=== PATIENT | female | born 1985 | race Two or more races ===

== ENCOUNTER 2025-06-01 23:51 | Inpatient (IN) | payer MEDICAID, OTHER ==
[~2025-06-01] VITALS: Ht 165.1 cm; Wt 66.0 kg
--- NOTE | 2025-06-02 00:16 | ED.PDOC ---
SOB-HPI HPI Comments 39 year old female presents to the ED via EMS with a chief complaint of shortness of breath onset 2 hours prior to ED arrival. Patient states she was sleeping, began experiencing shortness of breath, palpitations, chest tightness called 911. For the past day, patient was experiencing nausea/vomiting. Patient had a miscarriage in January 2025, had D&C at [facility] [place], shortly after had complications, was seen at [facility] [facility], recently had follow up appointment, was cleared. Patient states last time she was experiencing similar symptoms, she was septic. Upon ED arrival, HR was 140. She also states she has been under severe stress recently, causing anxiety. Denies any PMHx. Denies diarrhea, abdominal pain, dizziness, headache, blurry vision, cough, congestion, sore throat, cold, fever, chills. No other symptoms or modifying factors present at this time. Patient reports drinking alcohol daily, she reports she recently stopped drinking. Time Seen by MD: 00:05 Reviewed notes: Medications, Allergies Information Source: Patient, Emergency Med Personnel Mode of Arrival: EMS Severity: Moderate Timing: Hours Duration: Since onset Context: While Asleep PE Risk Factors: None History of: Anxiety Prehospital treatment: None Modifying Factors: Nothing Associated Signs and Symptoms: Chest Pain, Anxiety Quality: Tightness Radiation: No Radiation Vital Signs Vital Signs Date Time Temp Pulse Resp B/P (MAP) Pulse Ox O2 Delivery O2 Flow Rate FiO2 06/02/25 07:40 145 18 97 Room Air* 0 21 06/02/25 07:40 98.3 144/105 (118) 98.3 Physical Exam PHYSICAL EXAM: General: Awake, alert and oriented. No acute distress. Skin: Skin in warm, dry and intact. Appropriate color for ethnicity. HEENT: The head is normocephalic and atraumatic. Conjunctivae are clear without exudates or hemorrhage. Sclera is non-icteric. EOM are intact. No signs of nystagmus. Eyelids are normal in appearance without swelling or lesions. Oral mucosa is pink and moist Neck: The neck is supple with normal range of motion. No JVD. Cardiac: Rapid rate, regular rhythm. No murmurs, gallops, or rubs are auscultated. Respiratory: No signs of respiratory distress. Lung sounds are clear in all lobes bilaterally without rales, rhonchi, or wheezes. Abdominal: Abdomen is soft, non-tender without distention, guarding or rigidity. Extremities: Upper extremities are atraumatic in appearance without deformity or edema. Neurological: The patient is awake, alert and oriented to person, place, and time with normal speech. Speech is clear. There is no facial asymmetry. 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 Was a procedure done?: No Differential Dx Differential Diagnosis: Anxiety, Cardiogenic Shock, CHF, COPD, Panic Attack, Pneumonia, Other (Sepsis, alcohol withdrawal, hypovolemia, anemia, other) X-Ray, Labs, Meds, VS Vital Signs Date Time Temp Pulse Resp B/P (MAP) Pulse Ox O2 Delivery O2 Flow Rate FiO2 06/02/25 07:40 145 18 97 Room Air* 0 21 06/02/25 07:40 98.3 145 18 144/105 (118) 97 98.3 06/02/25 04:00 157 20 132/89 (103) 94 06/02/25 02:53 154 22 97 Room Air* 0 21 06/02/25 02:00 150 130/87 (101) 94 06/02/25 00:16 136 06/02/25 00:15 97.9 140 20 145/96 (112) 100 97.9 06/02/25 00:00 98.9 135 145/48 (80) 93 98.9 06/01/25 23:51 136 Lab Test 06/02/25 05:23 06/02/25 03:18 06/02/25 01:18 06/02/25 00:28 Range/Units Influenza Type A Antigen Negative Negative Influenza Type B Antigen Negative Negative SARS-CoV-2 Antigen (Rapid) Negative NEGATIVE Lactic Acid Level 5.0 *H 6.0 *H 6.0 *H 0.4-2.0 mmol/L Troponin I High Sensitivity < 3 L < 3 L < 3 L </=34 ng/L Plasma/Serum Blood Alcohol 17.2 H <10 mg/dL White Blood Count 7.2 4.4-10.8 10^3/uL Red Blood Count 4.30 4.0-5.20 10^6/uL Hemoglobin 13.8 12.2-16.2 g/dL Hematocrit 40.2 36.0-46.0 % Mean Corpuscular Volume 93.4 80.0-100.0 fL Mean Corpuscular Hemoglobin 32.1 H 28.0-32.0 pg Mean Corpuscular Hemoglobin Concent 34.4 32.0-36.0 g/dL Red Cell Distribution Width 13.5 11.8-14.3 % Platelet Count 222 140-450 10^3/uL Mean Platelet Volume 7.2 6.9-10.8 fL Neutrophils (%) (Auto) 71.7 37.0-80.0 % Lymphocytes (%) (Auto) 20.7 10.0-50.0 % Monocytes (%) (Auto) 6.9 0.0-12.0 % Eosinophils (%) (Auto) 0.1 0.0-7.0 % Basophils (%) (Auto) 0.6 0.0-2.0 % Neutrophils # (Auto) 5.2 1.6-8.6 10 ^3/uL Lymphocytes # (Auto) 1.5 0.4-5.4 10 ^3/uL Monocytes # (Auto) 0.5 0-1.3 10 ^3/uL Eosinophils # (Auto) 0 0-0.8 10 ^3/uL Basophils # (Auto) 0 0-0.2 10 ^3/uL Nucleated Red Blood Cells 0.1 % D-Dimer, Quantitative 0.42 0.0-0.49 mg/L FEU Sodium Level 138 136-145 mmol/L Potassium Level 3.2 L 3.5-5.1 mmol/L Chloride Level 101 98-107 mmol/L Carbon Dioxide Level 21 20-31 mmol/L Anion Gap 16 H 5-15 Blood Urea Nitrogen 7 L 9-23 mg/dL Creatinine 0.68 0.550-1.02 mg/dL Glomerular Filtration Rate Calc 114 >90 mL/min BUN/Creatinine Ratio 10.3 10.0-20.0 Serum Glucose 99 74-106 mg/dL Calcium Level 9.0 8.7-10.4 mg/dL Magnesium Level 1.5 L 1.6-2.6 mg/dL Total Bilirubin 0.6 0.2-1.0 mg/dL Aspartate Amino Transferase (AST) 257 H 13-40 U/L Alanine Aminotransferase (ALT) 125 H 7-40 U/L Alkaline Phosphatase 145 H 46-116 U/L B-Type Natriuretic Peptide 5.82 0-100 pg/mL Total Protein 7.5 5.7-8.2 g/dL Albumin 4.4 3.2-4.8 g/dL Thyroid Stimulating Hormone (TSH) 1.07 0.55-4.78 uIU/mL Beta HCG, Quantitative 1.3 L 1.5-4.2 mIU/mL Current Medications Medications (Trade) Dose Ordered Sig/Kate Route Start Time Stop Time Status Last Admin Sodium Chloride 1,000 ml @ 130 mls/hr [id number] ONCE IV 06/02/25 00:15 06/02/25 07:56 DC 06/02/25 00:34 Sodium Chloride 1,000 ml @ 1,000 mls/hr Q1H ONCE IV 06/02/25 00:15 06/02/25 01:14 DC 06/02/25 00:31 Ondansetron HCl (Zofran) 4 mg ONCE ONCE IV 06/02/25 00:15 06/02/25 00:16 DC 06/02/25 00:31 Alprazolam (Xanax Tablet) 0.5 mg ONCE ONCE PO 06/02/25 00:30 06/02/25 00:31 DC 06/02/25 00:34 Potassium Chloride (Klor-Con Tablet) 40 meq ONCE ONCE PO 06/02/25 01:30 06/02/25 01:34 DC 06/02/25 01:43 Lorazepam (Ativan Inj) 1 mg ONCE ONCE IV 06/02/25 02:45 06/02/25 02:46 DC 06/02/25 02:56 Vancomycin HCl 200 ml @ 200 mls/hr ONCE ONCE IV 06/02/25 02:45 06/02/25 03:44 DC 06/02/25 02:55 Piperacillin Sod/ Tazobactam Sod 100 ml @ 100 mls/hr ONCE ONCE IV 06/02/25 02:45 06/02/25 03:44 DC 06/02/25 02:45 Lorazepam (Ativan Inj) 2 mg ONCE ONCE IV 06/02/25 04:30 06/02/25 04:31 DC 06/02/25 04:44 Metoprolol Tartrate (Lopressor) 5 mg ONCE ONCE IV 06/02/25 07:30 06/02/25 07:31 DC 06/02/25 07:42 Time of 1ST Reevaluation: 00:35 Reevaluation 1ST: Unchanged Patient Education/Counseling: Need For Follow Up Family Education/Counseling: No Family Present SEPSIS Sepsis Screen Physician Orders Vital Signs Q1HR (06/02/25 00:09) Saline Lock (06/02/25 00:09) Supervisor Production (06/02/25 ) Rectal/Core Temps Only (06/02/25 00:09) Notify Md If Abnormal Vs (06/02/25 00:09) Blood Culture (06/02/25 00:09) Chest Xray 1 View (06/02/25 00:09) Ct Ab Pel With Iv Con Only (06/02/25 01:26) Communication Order (06/02/25 01:38) Vital Signs Date Time Temp Pulse Resp B/P (MAP) Pulse Ox O2 Delivery O2 Flow Rate FiO2 06/02/25 07:40 145 18 97 Room Air* 0 21 06/02/25 07:40 98.3 145 18 144/105 (118) 97 98.3 06/02/25 04:00 157 20 132/89 (103) 94 06/02/25 02:53 154 22 97 Room Air* 0 21 06/02/25 02:00 150 130/87 (101) 94 06/02/25 00:16 136 06/02/25 00:15 97.9 140 20 145/96 (112) 100 97.9 06/02/25 00:00 98.9 135 145/48 (80) 93 98.9 06/01/25 23:51 136 Laboratory Tests Test 06/02/25 00:28 06/02/25 01:18 06/02/25 03:18 Lactic Acid Level 6.0 mmol/L (0.4-2.0) *H 6.0 mmol/L (0.4-2.0) *H 5.0 mmol/L (0.4-2.0) *H White Blood Count 7.2 10^3/uL (4.4-10.8) Medications Medications Dose Ordered Sig/Kate Route Start Time Stop Time Status Last Admin Dose Admin Metoprolol Tartrate 5 mg ONCE ONCE IV 06/02/25 07:30 06/02/25 07:31 DC 06/02/25 07:42 Departure 1 Departure Time of Disposition: 04:08 Impression: Primary Impression: Shortness of breath Additional Impressions: Elevated LFTs Sinus tachycardia Alcohol withdrawal Disposition: ADMITTED INPATIENT Condition: Serious e-Prescriptions No Active Prescriptions or Reported Meds Comments MDM: Patient is stabilized in the emergency department Patient admitted to hospitalist service for further treatment, evaluation and monitoring. Extensive evaluation was performed in attempt to identify or rule out: (See differential diagnosis section) The following tests were ordered, and results were reviewed by me and discussed with patient: (See diagnostic results section) The following test were independently interpreted by me: EKG I reviewed and agreed with the following test results read by other providers: Chest x-ray I reviewed the following notes from the pt's past medical encounters: N/A Additional information was gathered from interviewing the following independent historians: EMS personnel Discussion of management or test interpretation with external physician/other qualified health manager intensive care unit: N/A Addressed an acute or chronic illness that poses a threat to life or bodily function: Alcohol withdrawal Decision regarding hospitalization or escalation of hospital level of care: Risk and benefits of admission for further treatment of patient's condition was considered. Due to patient's current clinical condition, high risk of decline and poor outcome if discharged and need for further inpatient management and monitoring, patient will be admitted to the hospital. Parenteral controlled substances: IV lorazepam Diagnosis or treatment significantly limited by social determinants of health: History of alcohol abuse Critical Care Note Critical Care Time?: No Stability Stability form required: No Heart Score Heart Score: Heart Score Response (Comments) Value History N/A 0 EKG N/A 0 Age N/A 0 Risk Factors N/A 0 Troponin N/A 0 Total 0 I personally scribed for JOYCE SAGASTUME MD ([email or web address]) on 06/02/25 at 00:16. Electronically submitted by Carmen Terrazas ([email or web address]). JOYCE SAGASTUME MD Jun 02, 2025 00:16
[2025-06-02] MEDS: SODIUM CHLORIDE 0.9% 1,000 ML IV ONE ×3 (00:31→01:40)
[2025-06-02] MEDS: ONDANSETRON HCL 4 MG/2 ML VIAL IV ONE (00:31)
[2025-06-02] MEDS: ALPRAZolam 0.5 MG TAB PO ONE (00:34)
[2025-06-02 00:39] LABS: Hematocrit 40.2 % (36.0-46.0); Hemoglobin 13.8 g/dL (12.2-16.2); Mean Corpuscular Hemoglobin 32.1 pg (28.0-32.0); Mean Corpuscular Volume 93.4 fL (80.0-100.0); Nucleated Red Blood Cells % 0.1 %
[2025-06-02 00:55] LABS: Albumin 4.4 g/dL (3.2-4.8); Anion Gap 16 (5-15); BUN/Creatinine Ratio 10.3 (10.0-20.0); Bilirubin, Total 0.6 mg/dL (0.2-1.0); Calcium 9.0 mg/dL (8.7-10.4); Carbon Dioxide 21 mmol/L (20-31); Chloride 101 mmol/L (98-107); Glucose 99 mg/dL (74-106); Sodium 138 mmol/L (136-145); Total Protein 7.5 g/dL (5.7-8.2)
[2025-06-02 00:57] LABS: Alanine Aminotransferase 125 U/L (7-40); Alkaline Phosphatase 145 U/L (46-116); Blood Urea Nitrogen 7 mg/dL (9-23); Lactic Acid w/Reflex 6.0 mmol/L (0.4-2.0); Potassium 3.2 mmol/L (3.5-5.1)
[2025-06-02] MEDS: POTASSIUM CHL 20 Meq TABLET PO ONE ×2 (01:43→16:45)
[2025-06-02 02:17] LABS: Lactic Acid w/Reflex 6.0 mmol/L (0.4-2.0)
[2025-06-02] MEDS: PIPERACILLIN-TAZOB 3.375GM 100 ML IV ONE (02:45)
[2025-06-02 02:53] VITALS: PULSE 154; RESP 22; O2SAT 97
[2025-06-02] MEDS: VANCOMYCIN 1GM/200ML PM 200 ML IV ONE (02:55)
[2025-06-02] MEDS: LORazepam 2MG/ML-1ML VIAL IV ONE ×2 (02:56→04:44)
--- NOTE | 2025-06-02 03:08 | DVH ---
CHEST RADIOGRAPH Indication: Suspected Sepsis Technique: Single frontal view of the chest was obtained COMPARISON: None FINDINGS: Lines and Tubes: None Lungs: Moderate diffuse increased prominence of the pulmonary vasculature. No evidence of focal conso lidation. Pleura: No effusion. No pneumothorax. Cardiomediastinal contours: Unremarkable Bones: Unremarkable IMPRESSION: 1. No acute disease. Moderate diffuse increased prominence of the pulmonary vasculature.
[2025-06-02] MEDS: IOHEXOL 300 MG/ML 100ML BOTTLE IJ ONE (03:10)
--- NOTE | 2025-06-02 03:37 | DVH ---
Exam: CT CT AB PEL WITH IV CON ONLY History: Elevated LFTs, suspected sepsis COMPARISON: None Technique: Multidetector spiral CT of the abdomen and pelvis was performed from lung bases to pubic s ymphysis. Intravenous contrast was administered during this examination. Portal venous imaging was o btained. Axial, coronal and sagittal multiplanar reformats were performed by the technologist on a [employer] workstation. Radiation Dose : 1. Abdomen/Pelvis: CTDIvol 18.72 mGy, DLP 994.43 mGy*cm. CONTRAST: Type of contrast: Omnipaque 300 Contrast injected: 100 ml Findings: Lung Bases: Mild left posterior basilar atelectasis. No acute or significant lung base finding. Norm al heart size. No pleural or pericardial effusion. Liver: The liver is enlarged, measuring 23.5 cm. Diffuse hepatic steatosis. No focal lesions. Destini l hepatic vascular enhancement. Gallbladder and Biliary Tree: Moderate gallbladder distention and probable sludge. Spleen: Unremarkable Pancreas: The pancreas is normal in appearance without focal lesions or abnormal enhancement. Adrenal Glands: Unremarkable Kidneys: No hydronephrosis. Bladder: Unremarkable Bowel: The stomach is grossly normal in appearance. Moderate circumferential wall thickening and intr amural edema of the cecum and ascending colon which may be related to inflammatory bowel disease and/ or colitis. Small bowel and colon are otherwise normal in caliber and distribution. The appendix is n ormal. Ascites: Absent Lymphadenopathy: No mesenteric, retroperitoneal or periportal lymphadenopathy. Abdominal Wall and Mesentery: Unremarkable. Vasculature: The visualized abdominal aorta is normal in size and caliber. Abdominal and pelvic vess els demonstrate normal enhancement. Pelvic Organs: Unremarkable Musculoskeletal: No aggressive focal bony lesions, acute fractures or dislocation. IMPRESSION: 1. Moderate circumferential wall thickening and edema of the cecum and ascending colon consistent wit h changes possibly related to colitis and/or inflammatory bowel disease. 2. Hepatomegaly and hepatic steatosis. 3. Gallbladder distention and probable sludge. Radiation optimization: All CT scans at this facility use at least one of these dose optimization alex hniques: automated exposure control mA and/or kV adjustment per patient size (includes targeted exam s where dose is matched to clinical indication) or iterative reconstruction.
[2025-06-02] MEDS ORDERED: METOPROLOL TARTRATE 1MG/1ML-5ML VIAL IV ONE (04:30)
[2025-06-02] MEDS ORDERED: ACETAMINOPHEN 325 MG TAB PO ONE (06:00)
[2025-06-02 07:40] VITALS: PULSE 145; RESP 18; O2SAT 97
[2025-06-02] MEDS: METOPROLOL TARTRATE 1MG/1ML-5ML VIAL IV ONE (07:42)
[2025-06-02] MEDS ORDERED: ONDANSETRON HCL 4 MG/2 ML VIAL IV PRN (07:45)
[2025-06-02] MEDS ORDERED: HYDROcodone-ACET 5/325MG TAB PO PRN (07:45)
[2025-06-02] MEDS ORDERED: VANCOMYCIN PER PHARMACY 0 MG IV SCH (07:45)
[2025-06-02] MEDS ORDERED: NITROGLYCERIN 0.4 MG SL TAB SL PRN (07:45)
[2025-06-02] MEDS ORDERED: ACETAMINOPHEN 325 MG TAB PO PRN (07:45)
[2025-06-02] MEDS ORDERED: DOCUSATE SOD 100 MG CAP PO PRN (07:45)
[2025-06-02] MEDS ORDERED: MORPHINE SULFATE INJ 2 MG/ml SYRG IV PRN (07:45)
--- NOTE | 2025-06-02 07:57 | DVHHP2 ---
History of Present Illness Reason for Visit: Tachycardia History of Present Illness The patient is a 39-year-old female with past medical history of anxiety who presented to [facility] ED with complaint of shortness of breaths. Patient reports experiencing shortness of breaths while sleeping with associated palpitations, chest tightness, increased work of breathing, nausea, vomiting, so EMS were called. Patient had a miscarriage in January 2025, had D&C at [facility], shortly after had complications, was seen at [place] [facility], recently for a follow up appointment, and was cleared. Patient states last time she was experiencing similar symptoms, she was septic. Patient was seen and evaluated in the ED, laboratory data shows WBC 7.2, platelets 222, sodium 138, potassium 3.2, BUN 7, creatinine 0.68, glucose 99, calcium 9.0, troponin < 3, alcohol 17.2, lactic acid 5.0, AST 257, ALT 125, blood pressure 132/89, heart rate 157 trending down to 126, temperature 98.9 F, O2 saturation 97% on room air. Abdomen/pelvis CT revealing moderate circumferential wall thickening and edema of the cecum and ascending colon consistent with changes possibly related to colitis and/or inflammatory bowel disease, hepatomegaly and hepatic steatosis, gallbladder distention and probable sludge. Patient was started on IV antibiotic regimen vancomycin, please see medication orders section in the computer. On my assessment, patient denied chest pain, no headache, no dizziness, no diaphoresis, no shortness of breath, no nausea, no vomiting, fever, no chills. Patient was admitted further evaluation and medical management. Past Medical History Anxiety, EtOH abuse Past Surgical History Denies all surgeries Family History Reviewed, noncontributory to the management of this case. Past Social History The patient lives at home, denies smoking, illicit drugs use, drinks alcohol heavily. Review of Systems Constitutional: No: Fever, Chills, Sweats, Weakness, Malaise, Other Eyes: No: Pain, Vision change, Conjunctivae inflammation, Eyelid inflammation, Other, Redness ENT: No: Ear pain, Ear discharge, Nose pain, Nose discharge, Nose congestion, Mouth pain, Mouth swelling, Throat pain, Throat swelling, Other Respiratory: Shortness of breath; No: Cough, Dry, SOB with excertion, Wheezing, Hemoptysis, Pleuritic Pain, Sputum, Wheezing, Other Cardiovascular: Chest Pain; No: Palpitations, Orthopnea, Paroxysmal Noc. Dyspnea, Edema, Lt Headedness, Other Gastrointestinal: Nausea, Vomiting; No: Abdominal Pain, Diarrhea, Constipation, Melena, Hematochezia, Other Genitourinary: No Dysuria, No Frequency, No Incontinence, No Hematuria, No Retention, No Other Musculoskeletal: No: other, neck pain, shoulder pain, arm pain, back pain, hand pain, leg pain, foot pain Skin: No: Rash, Lesions, Jaundice, Bruising, Other Neurological: No: Weakness, Numbness, Incoordination, Change in speech, Confusion, Seizures, Other Allergies: Coded Allergies: NO KNOWN ALLERGIES (Unverified , 06/02/25) Exam Vital Signs Vital Signs Date Time Temp Pulse Resp B/P (MAP) Pulse Ox O2 Delivery O2 Flow Rate FiO2 06/02/25 07:42 145 144/105 06/02/25 04:00 20 94 06/02/25 02:53 Room Air* 0 21 06/02/25 00:15 97.9 97.9 General Appearance: Alert, Oriented X3, Cooperative, No acute distress HEENT: Atraumatic, PERRLA, EOMI, Mucous membr. moist/pink Respiratory: Normal air movement Cardiovascular: Regular rate, Normal S1, Normal S2, No murmurs Abdominal: Normal bowel sounds, Soft, No tenderness, No hepatospenomegaly, No masses Extremities: No clubbing, No cyanosis, No edema, Normal pulses, No tende rness/swelling Skin: No rashes, No breakdown, No significant lesion Neuro: Normal gait, Normal speech, Strength at 5/5 X4 ext, Normal tone, Sensation intact, Cranial nerves 3-12 NL, Reflexes 2+ Psych/Mental Status: Mental status NL, Mood NL Labs/Xrays Labs Test 06/02/25 05:23 06/02/25 03:18 06/02/25 01:18 06/02/25 00:28 Range/Units Lactic Acid Level 5.0 *H 0.4-2.0 mmol/L Troponin I High Sensitivity < 3 L </=34 ng/L Plasma/Serum Blood Alcohol 17.2 H <10 mg/dL White Blood Count 7.2 4.4-10.8 10^3/uL Red Blood Count 4.30 4.0-5.20 10^6/uL Hemoglobin 13.8 12.2-16.2 g/dL Hematocrit 40.2 36.0-46.0 % Mean Corpuscular Volume 93.4 80.0-100.0 fL Mean Corpuscular Hemoglobin 32.1 H 28.0-32.0 pg Mean Corpuscular Hemoglobin Concent 34.4 32.0-36.0 g/dL Red Cell Distribution Width 13.5 11.8-14.3 % Platelet Count 222 140-450 10^3/uL Mean Platelet Volume 7.2 6.9-10.8 fL Neutrophils (%) (Auto) 71.7 37.0-80.0 % Lymphocytes (%) (Auto) 20.7 10.0-50.0 % Monocytes (%) (Auto) 6.9 0.0-12.0 % Eosinophils (%) (Auto) 0.1 0.0-7.0 % Basophils (%) (Auto) 0.6 0.0-2.0 % Neutrophils # (Auto) 5.2 1.6-8.6 10 ^3/uL Lymphocytes # (Auto) 1.5 0.4-5.4 10 ^3/uL Monocytes # (Auto) 0.5 0-1.3 10 ^3/uL Eosinophils # (Auto) 0 0-0.8 10 ^3/uL Basophils # (Auto) 0 0-0.2 10 ^3/uL Nucleated Red Blood Cells 0.1 % D-Dimer, Quantitative 0.42 0.0-0.49 mg/L FEU Sodium Level 138 136-145 mmol/L Potassium Level 3.2 L 3.5-5.1 mmol/L Chloride Level 101 98-107 mmol/L Carbon Dioxide Level 21 20-31 mmol/L Anion Gap 16 H 5-15 Blood Urea Nitrogen 7 L 9-23 mg/dL Creatinine 0.68 0.550-1.02 mg/dL Glomerular Filtration Rate Calc 114 >90 mL/min BUN/Creatinine Ratio 10.3 10.0-20.0 Serum Glucose 99 74-106 mg/dL Calcium Level 9.0 8.7-10.4 mg/dL Total Bilirubin 0.6 0.2-1.0 mg/dL Aspartate Amino Transferase (AST) 257 H 13-40 U/L Alanine Aminotransferase (ALT) 125 H 7-40 U/L Alkaline Phosphatase 145 H 46-116 U/L Total Protein 7.5 5.7-8.2 g/dL Albumin 4.4 3.2-4.8 g/dL PATIENT: CORTNEY GONZALEZ: [id number] UNIT: [id number] : 1985 LOC: ER ROOM / BED: / AGE / SEX: 39 / F ADM STATUS: REG ER SERVICE [id number] ORDERING PHYSICIAN: JOYCE SAGASTUME MD PROCEDURE(s): ABPLIV - CT AB PEL WITH IV CON ONLY REASON: Elevated LFTs, suspected sepsis ORDER NUMBER(s): [id number], ACCESSION NUMBER(s): [id number] Exam: CT CT AB PEL WITH IV CON ONLY History: Elevated LFTs, suspected sepsis COMPARISON: None Technique: Multidetector spiral CT of the abdomen and pelvis was performed from lung bases to pubic symphysis. Intravenous contrast was administered during this examination. Portal venous imaging was obtained. Axial, coronal and sagittal multiplanar reformats were performed by the technologist on a separate workstation. Radiation Dose: 1. Abdomen/Pelvis: CTDIvol 18.72 mGy, DLP 994.43 mGy*cm. CONTRAST: Type of contrast: Omnipaque 300 Contrast injected: 100 ml Findings: Lung Bases: Mild left posterior basilar atelectasis. No acute or significant lung base finding. Normal heart size. No pleural or pericardial effusion. Liver: The liver is enlarged, measuring 23.5 cm. Diffuse hepatic steatosis. No focal lesions. Normal hepatic vascular enhancement. Gallbladder and Biliary Tree: Moderate gallbladder distention and probable sludge. Spleen: Unremarkable Pancreas: The pancreas is normal in appearance without focal lesions or abnormal enhancement. Adrenal Glands: Unremarkable Kidneys: No hydronephrosis. Bladder: Unremarkable Bowel: The stomach is grossly normal in appearance. Moderate circumferential wall thickening and intramural edema of the cecum and ascending colon which may be related to inflammatory bowel disease and/or colitis. Small bowel and colon are otherwise normal in caliber and distribution. The appendix is normal. Ascites: Absent Lymphadenopathy: No mesenteric, retroperitoneal or periportal lymphadenopathy. Abdominal Wall and Mesentery: Unremarkable. Vasculature: The visualized abdominal aorta is normal in size and caliber. Abdominal and pelvic vessels demonstrate normal enhancement. Pelvic Organs: Unremarkable Musculoskeletal: No aggressive focal bony lesions, acute fractures or dislocation. IMPRESSION: 1. Moderate circumferential wall thickening and edema of the cecum and ascending colon consistent with changes possibly related to colitis and/or inflammatory bowel disease. 2. Hepatomegaly and hepatic steatosis. 3. Gallbladder distention and probable sludge. ORDERING PHYSICIAN: JOYCE SAGASTUME MD PROCEDURE(s): CXR1 - CHEST XRAY 1 VIEW REASON: Suspected Sepsis ORDER NUMBER(s): [id number], ACCESSION NUMBER(s): [id number] CHEST RADIOGRAPH Indication: Suspected Sepsis Technique: Single frontal view of the chest was obtained COMPARISON: None FINDINGS: Lines and Tubes: None Lungs: Moderate diffuse increased prominence of the pulmonary vasculature. No evidence of focal consolidation. Pleura: No effusion. No pneumothorax. Cardiomediastinal contours: Unremarkable Bones: Unremarkable IMPRESSION: 1. No acute disease. Moderate diffuse increased prominence of the pulmonary vasculature. SEPSIS Sepsis Screen Date sepsis recognized/suspect: Jun 02, 2025 Time Sepsis recognized/suspect: 020 Recent Procedure: No On Antibiotic Therapy: No Respiratory Rate >20: No Heart Rate >90: No Temp<36 C (96.8 F) or >38.3 C: No SBP <90 or MAP <65 mmHG: No New Acute Mental Status Change: No Is the patient on CPAP, BIPAP,: No Physician Orders Vital Signs Q1HR (06/02/25 00:09) Saline Lock (06/02/25 00:09) Flight Teacher (06/02/25 ) Rectal/Core Temps Only (06/02/25 00:09) Notify Md If Abnormal Vs (06/02/25 00:09) Blood Culture (06/02/25 00:09) Chest Xray 1 View (06/02/25 00:09) Urinalysis (06/02/25 00:09) Test, Urine (06/02/25 00:09) Electrocardigram (06/02/25 00:14) Drug Screen (06/02/25 01:02) Ct Ab Pel With Iv Con Only (06/02/25 01:26) Communication Order (06/02/25 01:38) Covid19 Antigen Lacey (06/02/25 ) Rapid Influenza A&B (06/02/25 04:20) Vital Signs Date Time Temp Pulse Resp B/P (MAP) Pulse Ox O2 Delivery O2 Flow Rate FiO2 06/02/25 07:42 145 144/105 06/02/25 04:00 157 20 132/89 (103) 94 06/02/25 02:53 154 22 97 Room Air* 0 21 06/02/25 02:00 150 130/87 (101) 94 06/02/25 00:16 136 06/02/25 00:15 97.9 140 20 145/96 (112) 100 97.9 06/02/25 00:00 98.9 135 145/48 (80) 93 98.9 Laboratory Tests Test 06/02/25 00:28 06/02/25 01:18 06/02/25 03:18 Lactic Acid Level 6.0 mmol/L (0.4-2.0) *H 6.0 mmol/L (0.4-2.0) *H 5.0 mmol/L (0.4-2.0) *H White Blood Count 7.2 10^3/uL (4.4-10.8) Medications Medications Dose Ordered Sig/Kate Route Start Time Stop Time Status Last Admin Dose Admin Alprazolam 0.5 mg ONCE ONCE PO 06/02/25 00:30 06/02/25 00:31 DC 06/02/25 00:34 0.5 MG Lorazepam 1 mg ONCE ONCE IV 06/02/25 02:45 06/02/25 02:46 DC 06/02/25 02:56 1 MG Lorazepam 2 mg ONCE ONCE IV 06/02/25 04:30 06/02/25 04:31 DC 06/02/25 04:44 2 MG Metoprolol Tartrate 5 mg ONCE ONCE IV 06/02/25 07:30 06/02/25 07:31 DC 06/02/25 07:42 5 MG Ondansetron HCl 4 mg ONCE ONCE IV 06/02/25 00:15 06/02/25 00:16 DC 06/02/25 00:31 4 MG Piperacillin Sod/ Tazobactam Sod 100 ml @ 100 mls/hr ONCE ONCE IV 06/02/25 02:45 06/02/25 03:44 DC 06/02/25 02:45 100 MLS/HR Potassium Chloride 40 meq ONCE ONCE PO 06/02/25 01:30 06/02/25 01:34 DC 06/02/25 01:43 40 MEQ Sodium Chloride 1,000 ml @ 130 mls/hr Q7H42M ONCE IV 06/02/25 00:15 06/02/25 07:56 DC 06/02/25 00:34 130 MLS/HR Sodium Chloride 1,000 ml @ 1,000 mls/hr Q1H ONCE IV 06/02/25 00:15 06/02/25 01:14 DC 06/02/25 00:31 1,000 MLS/HR Vancomycin HCl 200 ml @ 200 mls/hr ONCE ONCE IV 06/02/25 02:45 06/02/25 03:44 DC 06/02/25 02:55 200 MLS/HR Assessment/Plan Assessment/Plan Sinus tachycardia Alcohol withdrawal Elevated lactic acid level Shortness of breath Elevated liver enzymes Plan 1. Admit to telemetry unit 2. Breathing treatment 3. Pain control management 4. IV antibiotic management 5. Management of fluids and electrolytes 6. Consultation for hospitalist 7. Diagnostic test abdomen/pelvis eight 8. DVT prophylaxis-on SCDs 9. Repeat labs CBC, CMP in a.m. 10. Home medication reviewed and reconciled 11. Continue with current medical management 12. Treatment plan discussed with patient and RN. Patient verbalized understanding. Plan discussed with: Patient, Other (RN) Problem List: (1) Sinus tachycardia (2) Alcohol withdrawal (3) Elevated lactic acid level (4) Shortness of breath (5) Elevated liver enzymes Date of Service: Jun 02, 2025 Billing Provider: PRAVEEN PETERS DNP Common Visit Codes: 28580-CLCMULB INP/OBS CARE (HIGH) PRAVEEN PETESR DNP Jun 02, 2025 07:56
[2025-06-02 08:07] LABS: COVID19 ANTIGEN SOFIA FIA NEGATIVE (NEGATIVE)
[2025-06-02] MEDS: dilTIAZem 120MG ER CAP PO ONE (08:48)
[2025-06-02] MEDS: SODIUM CHLORIDE 0.9% 500 ML IV ONE (08:48)
--- NOTE | 2025-06-02 09:38 | ECG ---
[facility] Test Date: 2025-06-01 Test Time: 23:50:50 Pat Name: TAHIRA GONZALEZ Department: ED Room: 0286T Gender: F [employer] Super[employer]: RILEY : 1985 Requested By: JOYCE SAGASTUME Order Number: [id number] Reading MD: Nicholas Sal Measurements Intervals [place] Rate: 136 P: 63 AK: 112 QRS: 58 QRSD: 88 T: 12 QT: 289 QTc: 435 Interpretive Statements Sinus tachycardia Borderline ST depression, diffuse leads Electronically Signed On 06-09-2025 15:26:45 PDT by Nicholas Sal Please click the below link to view image of tracing.
[2025-06-02 09:45] LABS: Urine Protein, UAD Negative (Negative)
[2025-06-02 09:58] LABS: Benzodiazephine Screen, Urine Neg (NEGATIVE); Cocaine Screen, Urine Neg (NEGATIVE)
[2025-06-02 10:01] LABS: Amphetamine Screen, Urine Neg (NEGATIVE); Barbiturate Scree,Urine Neg (NEGATIVE); Cannabinoid Screen, Urine Neg (NEGATIVE); Opiate Scree,Urine Neg (NEGATIVE); Phencyclidine Screen, Urine Neg (NEGATIVE)
[2025-06-02] MEDS: SODIUM CHLORIDE 0.9% 1,000 ML IV SCH (10:16)
[2025-06-02] MEDS: PANTOPRAZOLE 40 MG/10 ML VIAL INJ IV SCH (11:13)
[2025-06-02] MEDS: MULTIPLE VITAMIN TAB PO SCH (11:13)
[2025-06-02] MEDS: METOPROLOL TARTRATE 25 MG TAB PO SCH (11:14)
[2025-06-02] MEDS: THIAMINE 100mg/ml INJ (200mg/2ml VIAL) IV SCH (11:14)
[2025-06-02] MEDS: FOLIC ACID 1 MG in D5W 5% 50 ML INJ SCH (11:14)
[2025-06-02] MEDS ORDERED: VANCOMYCIN 1.25GM/250ML 250 ML IV SCH (15:00)
[2025-06-02 15:28] LABS: Beta HCG, Quantitative 1.3 mIU/mL (1.5-4.2)
[2025-06-02 15:45] LABS: Thyroid Stimulating Hormone 1.07 uIU/mL (0.55-4.78)
[2025-06-02 16:33] LABS: Albumin 4.1 g/dL (3.2-4.8); Anion Gap 11 (5-15); BUN/Creatinine Ratio 7.2 (10.0-20.0); Calcium 9.0 mg/dL (8.7-10.4); Carbon Dioxide 26 mmol/L (20-31); Chloride 101 mmol/L (98-107); Glucose 88 mg/dL (74-106); Potassium 3.8 mmol/L (3.5-5.1); Sodium 138 mmol/L (136-145); Total Protein 6.7 g/dL (5.7-8.2)
[2025-06-02 16:34] LABS: Alanine Aminotransferase 104 U/L (7-40); Alkaline Phosphatase 134 U/L (46-116); Bilirubin, Total 1.8 mg/dL (0.2-1.0); Blood Urea Nitrogen 5 mg/dL (9-23)
[2025-06-02 16:35] LABS: Lactic Acid w/Reflex 2.1 mmol/L (0.4-2.0)
--- NOTE | 2025-06-02 16:36 | DVHPNRES ---
Progress Note Date Seen: Jun 02, 2025 Resident Creating Document: LONA LEUNG RESIDENT Medical Necessity Reason Pt with a Central, PICC or Fol: No Subjective Review of Systems A 39-year-old female with no significant PMH except chronic alcohol abuse, history of miscarriages x2 presented to the ED with the chief complaints of palpitations, unable to catch breath which feels like panic attack day prior to admission. Patient reported that she has been having panic attacks after 2nd miscarriage in January but it has been resolving again yesterday she generally felt palpitations, nausea, dizziness, unable to catch breath which prompted her to visit ED. patient also reported has been having mild diarrhea. On my assessment patient denies fever, vomiting, chills, chest pain, diaphoresis, Eating unusual food, sick contacts, recent travel and other acute associated symptoms. Of the record patient also reports she has been having stressful situation at home due to ongoing issues and with the boyfriend. Last drink was day before yesterday. PMH: Chronic alcohol abuse , miscarriages, ? Anxiety PSH: D and C x2 Family history: Heart disease in mother, cancer in paternal grandfather Social history: Lives with a boyfriend. 2-3 drinks of alcohol every alternate day but denies smoking, and other drug abuse Home medications: None Allergies: No known allergies Patient seen and examined at the bedside. Currently patient reporting mild anxious, palpitations and reported improvement in the symptoms since admission. EKG revealed sinus tachycardia but no significant ischemic changes. Objective vital signs Vital Sign Date Time Temp Pulse Resp B/P (MAP) Pulse Ox O2 Delivery O2 Flow Rate FiO2 06/02/25 14:00 99.0 106 16 138/97 (111) 97 99.0 06/02/25 07:40 Room Air* 0 21 Total Intake and Output 06/01/25 06/01/25 06/02/25 15:00 23:00 07:00 Intake Total 2300 ml Balance 2300 ml medications Current Medications Medications Dose Ordered Sig/Kate Route Start Time Stop Time Status Last Admin Dose Admin Metronidazole 100 ml @ 100 mls/hr Q8HR IV 06/02/25 14:00 06/02/25 14:24 100 MLS/HR Lorazepam 1 mg Q2HP PRN IV 06/02/25 07:45 Pantoprazole Sodium 40 mg DAILY IV 06/02/25 10:00 06/02/25 11:13 40 MG Thiamine HCl 100 mg DAILY IV 06/02/25 10:00 06/02/25 11:14 100 MG Acetaminophen/ Hydrocodone Bitart 1 tab Q4HP PRN PO 06/02/25 07:45 Ondansetron HCl 4 mg Q4HP PRN IV 06/02/25 07:45 Docusate Sodium 100 mg BIDPRN PRN PO 06/02/25 07:45 Multivitamins 1 tab DAILY PO 06/02/25 10:00 06/02/25 11:13 1 TAB Acetaminophen 650 mg Q6HP PRN PO 06/02/25 07:45 Nitroglycerin 0.4 mg Q5MINP PRN SL 06/02/25 07:45 Morphine Sulfate 2 mg Q30M PRN IV 06/02/25 07:45 Magnesium Sulfate/ Dextrose 100 ml @ 100 mls/hr Q1HR IV 06/02/25 15:00 06/02/25 17:59 Ceftriaxone Sodium 50 ml @ 100 mls/hr DAILY@09 IV 06/03/25 09:00 Folic Acid 1 mg DAILY PO 06/03/25 10:00 Examination Pt is lying on bed General Appearance: Alert, Oriented X3, Cooperative, Not in acute distress HEENT: Atraumatic, Mucous membranes moist/pink Respiratory: Diminished breath sounds bilaterally more diminished on right side Cardiovascular: Tachycardic, Normal S1, Normal S2, No murmurs Abdominal: Active bowel sounds, Soft, no distention, no tenderness Extremities: No edema, Normal pulses, No tenderness/swelling, but not and tremors at fingers Skin: No Significant rash Neuro: Normal speech, sensorimotor deficits none Psych/Mental Status: Mildly anxious Nurse was there as tie binder during examination laboratory and microbiology Laboratory Tests 06/02/25 00:28 Test 06/02/25 15:16 Range/Units Serum Glucose Pending Labs and/or images reviewed: Labs reviewed by me, Image(s) reviewed by me Problem List/Assessment/Plan Problem List/Assessment/Plan # Sinus tachycardia & shortness of breaths likely from sepsis / anxiety / withdrawals- monitor on telemetry, EKG normal sinus rhythm, BNP normal, ordered echocardiogram, monitor lab # R/o Sepsis / SIRS # Acute Colits likely infectious # ? Acute gastro enteritis # Rule out C diff - CT abdomen/pelvis showed circumferential wall thickening and edema of the cecum and ascending colon consistent with changes possibly related to colitis and/or inflammatory bowel disease. - Rocephin and Flagyl - initially started on IVF but discontinued due to ? Pulmonary congestion on CXR - regular diet - monitor lab - elevated lactic acid, monitor - stool cultures along with the stool studies # alcohol intoxication # ? alcohol withdrawal- monitor for symptoms # Dizziness likely from intoxication - elevated blood alcohol - today CIWA scores of 7 - Ativan p.r.n. - thiamine and folic acid - counseled regarding cessation for 22 minutes # hypomagnesemia # Hypokalemia - Repleting - Monitor lab # Transaminitis likely due to below # Hepatomegaly & hepatic steatosis likely alcohol-induced- counseled regarding cessation and required outpatient follow up # Gallbladder distention and probable sludge, rule out acute cholecystitis- ordered GB ultrasound, pending GI PPX: Protonix VTE PPX: Patient is ambulatory Diet: Cardiac/Regular Goals of care discussed with the patient for 20 minutes: Full code status Case discussed with Dr. Izquierdo, patient and nurse Plan discussed with: Patient, Other (RN) Addendum Addendum Addendum I was physically present for the carter portions of the service provided to patient by THE RESIDENT. I have reviewed the documentation, discussed the case with resident and agree with the resident's documentation except as noted. Also the patient's clinical case was discussed with the patient's nurse. This medical document was created using an electronic medical record system with computerized dictation system. Although this document has been carefully reviewed, there might still be some phonetic and typographical errors. These areas are purely typographical due to imperfections of the software programs, and do not reflect any compromise in the patient's medical care. Late signature. Date of Service: Jun 02, 2025 Billing Provider: KEYANA IZQUIERDO MD Common Visit Codes: [id number] INP/OBS CARE(HIGH) Secondary Visit Codes: [id number] CHNG SMOKING >10MIN (22 minutes on alcohol use cessation), [id number] CARE PLAN 30 MINUTES (20 minutes) LONA LEUNG RESIDENT Jun 02, 2025 16:35 KEYANA IZQUIERDO MD Jun 05, 2025 06:14
--- NOTE | 2025-06-02 16:37 | DVH ---
EXAM: US GALLBLADDER CLINICAL HISTORY: ruq pain TECHNIQUE: Grayscale and limited color flow doppler ultrasound of the right upper quadrant is perfor med. COMPARISON: None Findings: Liver measures 21.2 cm in length with increased echotexture and contour. No evidence of focal hepatic lesions or intra- or extrahepatic ductal dilatation. Common bile duct measures 0.6 cm in diameter. N ormal hepatopedal flow noted within the portal vein. No perihepatic free fluid is noted. Gallbladder appears within normal limits with gallbladder wall thickness measuring 0.2 cm. There is b iliary sludge. No evidence of shadowing calculi or pericholecystic fluid. Negative sonographic Cohen 's sign. Pancreas not well-visualized due to overlying bowel gas. Right kidney measures 10.3 cm with normal contours, echotexture and cortical thickness. No evidence o f hydronephrosis, calculi, cystic or solid renal lesions. Partially visualized inferior vena cava unremarkable. Impression: 1. No evidence of acute right upper quadrant abnormalities. 2. Hepatomegaly with hepatic steatosis.
[2025-06-02] MEDS: cefTRIAXone 1GM/50ML D5W 50 ML IV ONE (16:45)
[2025-06-02] MEDS: MAGNESIUM SULFATE 1GM/100ML 100 ML IV SCH (16:50)
[2025-06-02 18:26] VITALS: BP 133/69; PULSE 110; RESP 17; TEMP 98.8; O2SAT 96
[2025-06-02 18:30] VITALS: BP 134/95; PULSE 108; RESP 18; TEMP 98.8; O2SAT 97
[2025-06-02] MEDS: LORazepam 2MG/ML-1ML VIAL IV PRN (20:06)
[2025-06-02 20:30] VITALS: PULSE 109; PULSE 114; RESP 19; O2SAT 96
[2025-06-02 21:00] VITALS: BP 132/100; PULSE 109; RESP 19; TEMP 98; O2SAT 97
[2025-06-03] VITALS (8 sets, daily range): BP systolic 122–133; BP diastolic 93–98; PULSE 92–138; RESP 16–19; TEMP 97.7–98.2; O2SAT 96–99
[2025-06-03 05:15] LABS: Hematocrit 39.2 % (36.0-46.0); Hemoglobin 13.4 g/dL (12.2-16.2); Mean Corpuscular Hemoglobin 32.5 pg (28.0-32.0); Mean Corpuscular Volume 95.3 fL (80.0-100.0); Nucleated Red Blood Cells % 0.0 %
--- NOTE | 2025-06-03 05:34 | DVH ---
CHEST RADIOGRAPH Indication: sob Technique: Single frontal view of the chest was obtained COMPARISON: XY CHEST XRAY 1 VIEW on DOS: 06/02/25 FINDINGS: Lines and Tubes: None Lungs: Clear Pleura: No effusion. No pneumothorax. Cardiomediastinal contours: Unremarkable Bones: Unremarkable IMPRESSION: 1. No acute disease.
[2025-06-03 05:36] LABS: Anion Gap 8 (5-15); Calcium 9.5 mg/dL (8.7-10.4); Carbon Dioxide 26 mmol/L (20-31); Chloride 103 mmol/L (98-107); Glucose 83 mg/dL (74-106); Magnesium 2.5 mg/dL (1.6-2.6); Potassium 4.0 mmol/L (3.5-5.1); Sodium 137 mmol/L (136-145); Total Protein 7.0 g/dL (5.7-8.2)
[2025-06-03 05:37] LABS: Albumin 4.2 g/dL (3.2-4.8)
[2025-06-03 05:40] LABS: Alkaline Phosphatase 124 U/L (46-116); BUN/Creatinine Ratio 7.1 (10.0-20.0); Blood Urea Nitrogen < 5 mg/dL (9-23)
[2025-06-03 05:41] LABS: Alanine Aminotransferase 95 U/L (7-40); Bilirubin, Total 1.7 mg/dL (0.2-1.0)
[2025-06-03] MEDS: cefTRIAXone 1GM/50ML D5W 50 ML IV SCH (09:33)
[2025-06-03] MEDS: FOLIC ACID 1 MG TAB PO SCH (09:33)
[2025-06-03] MEDS: hydrOXYzine 25 MG TAB or CAP PO ONE (09:34)
[2025-06-03] MEDS ORDERED: dilTIAZem 120MG ER CAP PO SCH (10:00)
--- NOTE | 2025-06-03 16:58 | DVHSR ---
APPROVED REPORT EXAM: Two-dimensional and M-mode echocardiogram with Doppler and color Doppler. Blood Pressure: 126/97 mmHg INDICATION Pulm edema RISK FACTORS Height: 5'5", Weight: 160 DIMENSIONS LVDd4.7 (3.8-5.7cm)LA (2D)3.8 (1.9-4.0cm)Aortic Root2.8 (2.0-3.7cm) LVDs3.4 (2.5-4.0cm)LA (MM) (1.9-4.0cm)Aortic Cusp Exc1.8 (1.5-2.0cm) EF (%) 55.0 (55-70%)Rt. Atrium3.8 (1.9-4.0cm)Asc. Aorta3.1 cm IVSd0.9 (0.7-1.1cm)RV (D) (1.8-2.4cm) PWd0.7 (0.7-1.1cm) Mitral Valve MitralMitral Stenosis E/A ratio0.02D MVAcm2 Aortic Valve Aortic ValveAortic Stenosis V10.99m/Daisy Mean GR.4mmHg V21.25m/Daisy Peak GR.6mmHg LVOT Diameter2.1 (1.8-2.4cm)Doppler AVA2.74cm2 Pulmonic Valve V20.73m/s Tricuspid Valve TR Velocity2.22m/s [id number] Other Information Quality : Technically LimitedRhythm : Technically limited study due to body habitus. Conclusion Technically good study. Sinus rhythm. Normal chamber sizes. Valves are normal. The mitral tricuspid aortic and pulmonic are within normal limits. Left ventricular systolic performance is preserved at 55-60% with normal RV function. Doppler reveals no significant regurgitant jets. There is trace mitral and tricuspid regurgitation. No pericardial effusion masses or vegetations discernible.
--- NOTE | 2025-06-03 17:04 | DVHPNRES ---
Progress Note Date Seen: Jun 03, 2025 Resident Creating Document: [facility] RESIDENT Medical Necessity Reason Pt with a Central, PICC or Fol: No Subjective Review of Systems Charlee Velasco is a 39-year-old female with no significant PMH except chronic alcohol abuse, history of miscarriages x2 presented to the ED with the chief complaints of palpitations, unable to catch breath which feels like panic attack day prior to admission. Patient reported that she has been having panic attacks after 2nd miscarriage in January but it has been resolving again yesterday she generally felt palpitations, nausea, dizziness, unable to catch breath which prompted her to visit ED. patient also reported has been having mild diarrhea. On my assessment patient denies fever, vomiting, chills, chest pain, diaphoresis, Eating unusual food, sick contacts, recent travel and other acute associated symptoms. Of the record patient also reports she has been having stressful situation at home due to ongoing issues and with the boyfriend. Last drink was day before yesterday. PMH: Chronic alcohol abuse , miscarriages, ? Anxiety PSH: D and C x2 Family history: Heart disease in mother, cancer in paternal grandfather Social history: Lives with a boyfriend. 2-3 drinks of alcohol every alternate day but denies smoking, and other drug abuse Home medications: None Allergies: No known allergies Patient seen and examined at the bedside. Overnight events reviewed. Patient reports she is feeling better and that she does not have as much anxiety as she did when she came in. She says that she has recurrent nightmares that leave her a bit dazed when she wakes up. She reports the today morning at 8:00 a.m. when she got up from sleep and went to the bathroom and returned to her bed, she noticed her heart rate was in the 140s (seen in the monitor) but during that time she felt fine and did not have any palpitations, chest pain or any shortness of breath. Objective vital signs Vital Sign Date Time Temp Pulse Resp B/P (MAP) Pulse Ox O2 Delivery O2 Flow Rate FiO2 06/03/25 16:49 97.7 138 19 124/97 (106) 98 97.7 06/03/25 08:00 Room Air* 0 21 Total Intake and Output 06/02/25 06/02/25 06/03/25 15:00 23:00 07:00 Intake Total 550.2 ml 200 ml 400 ml Balance 550.2 ml 200 ml 400 ml medications Current Medications Medications Dose Ordered Sig/Kate Route Start Time Stop Time Status Last Admin Dose Admin Metronidazole 100 ml @ 100 mls/hr Q8HR IV 06/02/25 14:00 06/03/25 14:28 100 MLS/HR Lorazepam 1 mg Q2HP PRN IV 06/02/25 07:45 06/03/25 14:29 1 MG Pantoprazole Sodium 40 mg DAILY IV 06/02/25 10:00 06/03/25 09:33 40 MG Thiamine HCl 100 mg DAILY IV 06/02/25 10:00 06/03/25 09:34 100 MG Acetaminophen/ Hydrocodone Bitart 1 tab Q4HP PRN PO 06/02/25 07:45 Ondansetron HCl 4 mg Q4HP PRN IV 06/02/25 07:45 Docusate Sodium 100 mg BIDPRN PRN PO 06/02/25 07:45 Multivitamins 1 tab DAILY PO 06/02/25 10:00 06/03/25 09:33 1 TAB Acetaminophen 650 mg Q6HP PRN PO 06/02/25 07:45 Nitroglycerin 0.4 mg Q5MINP PRN SL 06/02/25 07:45 Morphine Sulfate 2 mg Q30M PRN IV 06/02/25 07:45 Ceftriaxone Sodium 50 ml @ 100 mls/hr DAILY@09 IV 06/03/25 09:00 06/03/25 09:33 100 MLS/HR Folic Acid 1 mg DAILY PO 06/03/25 10:00 06/03/25 09:33 1 MG Chlordiazepoxide HCl 10 mg Q6HPRN PRN PO 06/03/25 08:15 Examination Pt is lying on bed General Appearance: Alert, Oriented X3, Cooperative, Not in acute distress HEENT: Atraumatic, Mucous membranes moist/pink Respiratory: Diminished breath sounds bilaterally- Right>left side Cardiovascular: Tachycardic, Normal S1, Normal S2, No murmurs Abdominal: Active bowel sounds, Soft, no distention, no tenderness Extremities: No edema, Normal pulses, No tenderness/swelling, but not and tremors at fingers Skin: No Significant rash, no scars Neuro: Normal speech, no sensorimotor deficits Psych/Mental Status: normal mental status, Mildly anxious Nurse was there as devops developer during examination laboratory and microbiology Laboratory Tests 06/03/25 04:35 06/03/25 04:20 Test 06/03/25 04:35 Range/Units Serum Glucose 83 74-106 mg/dL Microbiology Date/Time Source Procedure Growth Status 06/02/25 00:28 Blood Blood Culture - Preliminary NO GROWTH AFTER 24 HOURS OF INCUBATION. Resulted Labs and/or images reviewed: Labs reviewed by me, Image(s) reviewed by me Problem List/Assessment/Plan Problem List/Assessment/Plan # Sinus tachycardia & shortness of breaths likely from sepsis / anxiety / withdrawals- monitor on telemetry, EKG normal sinus rhythm, BNP normal, ordered echocardiogram, monitor lab # R/o Sepsis / SIRS # Acute Colits likely infectious # ? Acute gastro enteritis # Rule out C diff - CT abdomen/pelvis showed circumferential wall thickening and edema of the cecum and ascending colon consistent with changes possibly related to colitis and/or inflammatory bowel disease. - Rocephin and Flagyl - initially started on IVF but discontinued due to ? Pulmonary congestion on CXR - regular diet - monitor lab - elevated lactic acid, monitor - stool cultures along with the stool studies, pending # ?postural orthostatic tachycardia -HR measured in supine and standing position at 3,5,10 minutes. Difference in HR of 20-30bpm from supine to standing position each time noted -orthostatic blood pressure measured -echo results pending # Alcohol intoxication # ? alcohol withdrawal- monitor for symptoms # Dizziness likely from intoxication - elevated blood alcohol - CIWA score of 5 today - Ativan p.r.n. - thiamine and folic acid repletion - counseled regarding cessation # hypomagnesemia # Hypokalemia - Repleting - Monitor lab # Transaminitis likely due to below # Hepatomegaly & hepatic steatosis likely alcohol-induced- -as seen in CT abd/pelvis -counseled regarding cessation and about outpatient follow up with PCP # Gallbladder distention and probable sludge, rule out acute cholecystitis- ordered GB ultrasound, results: gallbladder wall thickness measuring 0.2 cm. There is biliary sludge. F/U as outpatient GI PPX: Protonix VTE PPX: Patient is ambulatory Diet: Cardiac/Regular Case discussed with Dr. Izquierdo, patient and nurse Plan discussed with: Patient, Other (RN) Addendum Addendum Addendum I was physically present for the carter portions of the service provided to patient by THE RESIDENT. I have reviewed the documentation, discussed the case with resident and agree with the resident's documentation except as noted. Also the patient's clinical case was discussed with the patient's nurse. This medical document was created using an electronic medical record system with computerized dictation system. Although this document has been carefully reviewed, there might still be some phonetic and typographical errors. These areas are purely typographical due to imperfections of the software programs, and do not reflect any compromise in the patient's medical care. Late signature. Date of Service: Jun 03, 2025 Billing Provider: KEYANA IZQUIERDO MD Common Visit Codes: [id number] INP/OBS CARE(HIGH) [facility] RESIDENT Jun 03, 2025 17:04 KEYANA IZQUIERDO MD Jun 05, 2025 06:17
[2025-06-04 05:00] VITALS: BP 116/91; PULSE 125; RESP 18; TEMP 97.9; O2SAT 98
[2025-06-04 08:00] VITALS: PULSE 132
[2025-06-04 09:00] VITALS: BP 124/92; PULSE 101; RESP 17; TEMP 97.6; O2SAT 99
[2025-06-04] MEDS: AMOXICILLIN/CLAVUL 875 MG TAB PO SCH (09:18)
[2025-06-04 10:14] LABS: Albumin 4.5 g/dL (3.2-4.8); Anion Gap 10 (5-15); BUN/Creatinine Ratio 9.9 (10.0-20.0); Calcium 10.1 mg/dL (8.7-10.4); Carbon Dioxide 24 mmol/L (20-31); Glucose 97 mg/dL (74-106); Total Protein 7.3 g/dL (5.7-8.2)
[2025-06-04 10:16] LABS: Hepatitis B Surface Antigen Negative (Negative)
[2025-06-04 10:17] LABS: Alanine Aminotransferase 143 U/L (7-40); Alkaline Phosphatase 141 U/L (46-116); Bilirubin, Total 1.3 mg/dL (0.2-1.0); Blood Urea Nitrogen 8 mg/dL (9-23); Chloride 103 mmol/L (98-107); Potassium 3.9 mmol/L (3.5-5.1); Sodium 137 mmol/L (136-145)
[2025-06-04 10:48] LABS: Hepatitis C Antibody Negative (Negative)
[2025-06-04] MEDS ORDERED: MULTTAB99 PO (12:28)
[2025-06-04] MEDS ORDERED: FOLI-119 PO (12:28)
[2025-06-04] MEDS ORDERED: THIA100T10 PO (12:28)
[2025-06-04] MEDS ORDERED: AUG875T PO (12:28)
[2025-06-04 12:50] VITALS: BP 126/97; PULSE 96; TEMP 36.4
[2025-06-04 13:00] VITALS: BP 123/96; PULSE 108; RESP 18; TEMP 98.1; O2SAT 99
--- NOTE | 2025-06-04 14:42 | DVHDSRES ---
Discharge Summary Date of Admission Resident Creating Document: [facility] RESIDENT Jun 02, 2025 at 07:41 Date of Discharge: Jun 04, 2025 Admitting Diagnosis Palpitations/Chest Discomfort/SOB/Anxiety Labs/Diagnostic Data: Laboratory Results Test 06/04/25 08:56 06/04/25 06:00 06/03/25 20:56 06/03/25 13:50 Sodium Level 137 mmol/L (136-145) Potassium Level 3.9 mmol/L (3.5-5.1) Chloride Level 103 mmol/L (98-107) Carbon Dioxide Level 24 mmol/L (20-31) Anion Gap 10 (5-15) Blood Urea Nitrogen 8 mg/dL (9-23) Creatinine 0.81 mg/dL (0.550-1.02) Glomerular Filtration Rate Calc 95 mL/min (>90) BUN/Creatinine Ratio 9.9 (10.0-20.0) Serum Glucose 97 mg/dL (74-106) Calcium Level 10.1 mg/dL (8.7-10.4) Total Bilirubin 1.3 mg/dL (0.2-1.0) Aspartate Amino Transferase (AST) 333 U/L (13-40) Alanine Aminotransferase (ALT) 143 U/L (7-40) Alkaline Phosphatase 141 U/L (46-116) Total Protein 7.3 g/dL (5.7-8.2) Albumin 4.5 g/dL (3.2-4.8) POC Glucose 94 mg/dl (70-106) Vancomycin Level Trough < 3.0 ug/mL (5-10) Test 06/03/25 04:35 06/03/25 04:20 06/02/25 17:46 06/02/25 09:00 Magnesium Level 2.5 mg/dL (1.6-2.6) White Blood Count 4.7 10^3/uL (4.4-10.8) Red Blood Count 4.12 10^6/uL (4.0-5.20) Hemoglobin 13.4 g/dL (12.2-16.2) Hematocrit 39.2 % (36.0-46.0) Mean Corpuscular Volume 95.3 fL (80.0-100.0) Mean Corpuscular Hemoglobin 32.5 pg (28.0-32.0) Mean Corpuscular Hemoglobin Concent 34.1 g/dL (32.0-36.0) Red Cell Distribution Width 13.4 % (11.8-14.3) Platelet Count 145 10^3/uL (140-450) Mean Platelet Volume 7.7 fL (6.9-10.8) Neutrophils (%) (Auto) 47.8 % (37.0-80.0) Lymphocytes (%) (Auto) 41.6 % (10.0-50.0) Monocytes (%) (Auto) 7.3 % (0.0-12.0) Eosinophils (%) (Auto) 2.8 % (0.0-7.0) Basophils (%) (Auto) 0.5 % (0.0-2.0) Neutrophils # (Auto) 2.2 10 ^3/uL (1.6-8.6) Lymphocytes # (Auto) 1.9 10 ^3/uL (0.4-5.4) Monocytes # (Auto) 0.3 10 ^3/uL (0-1.3) Eosinophils # (Auto) 0.1 10 ^3/uL (0-0.8) Basophils # (Auto) 0 10 ^3/uL (0-0.2) Nucleated Red Blood Cells 0.0 % Hepatitis A IgM Antibody Negative Hepatitis B Surface Antigen Negative (Negative) Hepatitis B Core IgM Antibody Negative (Negative) Hepatitis C Antibody Negative (Negative) Lactic Acid Level 1.7 mmol/L (0.4-2.0) Urine Color Light-yellow (Yellow) Urine Clarity Clear (Clear) Urine pH 7.5 (5.0-9.0) Urine Specific [place] > 1.050 (1.001-1.035) Urine Protein Negative (Negative) Urine Ketones Negative (Negative) Urine Blood Negative /uL (Negative) Urine Nitrite Negative (Negative) Urine Bilirubin Negative (Negative) Urine Urobilinogen Normal mg/dL (Negative) Urine Leukocyte Esterase Negative /uL (Negative) Urine RBC 1 /hpf (0 - 4) Urine Microscopic WBC 2 /HPF (0-5) Urine Squamous Epithelial Cells Few /hpf (<5) Urine Bacteria None seen /hpf (None Seen) Urine Glucose Normal mg/dL (Normal) Urine Test Negative (Negative) Urine Opiates Screen Neg (NEGATIVE) Urine Fentanyl Screen Neg (NEGATIVE) Urine Barbiturates Screen Neg (NEGATIVE) Urine Phencyclidine Screen Neg (NEGATIVE) Urine Amphetamines Screen Neg (NEGATIVE) Urine Benzodiazepines Screen Neg (NEGATIVE) Urine Cocaine Screen Neg (NEGATIVE) Urine Cannabinoids Screen Neg (NEGATIVE) Test 06/02/25 05:23 06/02/25 03:18 06/02/25 01:18 06/02/25 00:28 Influenza Type A Antigen Negative (Negative) Influenza Type B Antigen Negative (Negative) SARS-CoV-2 Antigen (Rapid) Negative (NEGATIVE) Troponin I High Sensitivity < 3 ng/L (</=34) Plasma/Serum Blood Alcohol 17.2 mg/dL (<10) D-Dimer, Quantitative 0.42 mg/L FEU (0.0-0.49) B-Type Natriuretic Peptide 5.82 pg/mL (0-100) Thyroid Stimulating Hormone (TSH) 1.07 uIU/mL (0.55-4.78) Beta HCG, Quantitative 1.3 mIU/mL (1.5-4.2) Other Laboratory Tests 06/04/25 08:56 06/03/25 04:20 Brief Hx & Hospital Course: Charlee Velasco is a 39-year-old female with no significant PMH except chronic alcohol abuse, history of miscarriages x2 presented to the ED with the chief complaints of palpitations, unable to catch breath which feels like panic attack day prior to admission. Patient reported that she has been having panic attacks after 2nd miscarriage in January but it has been resolving again yesterday she generally felt palpitations, nausea, dizziness, unable to catch breath which prompted her to visit ED. patient also reported has been having mild diarrhea. On my assessment patient denies fever, vomiting, chills, chest pain, diaphoresis, Eating unusual food, sick contacts, recent travel and other acute associated symptoms. Of the record patient also reports she has been having stressful situation at home due to ongoing issues and with the boyfriend. Last drink was day before yesterday. PMH: Chronic alcohol abuse , miscarriages, ? Anxiety PSH: D and C x2 Family history: Heart disease in mother, cancer in paternal grandfather Social history: Lives with a boyfriend. 2-3 drinks of alcohol every alternate day but denies smoking, and other drug abuse Home medications: None Allergies: No known allergies Brief history of hospitalization: Patient had Sinus tachycardia & shortness of breaths likely from sepsis / anxiety / withdrawal. We monitored her on telemetry, EKG showed normal sinus rhythm, BNP normal, ordered echocardiogram, monitor lab. we ruled out Sepsis / SIRS. Patient had Acute Colits likely infectious,? Acute gastro enteritis, Ruled out C diff. CT abdomen/pelvis showed circumferential wall thickening and edema of the cecum and ascending colon consistent with changes possibly related to colitis and/or inflammatory bowel disease. She started on Rocephin and Flagyl and initially started on IVF as well but discontinued due to ? Pulmonary congestion on CXR. we put her on a regular diet, monitored her labs and awaited lactic acid was monitored as well. Stool cultures were sent with stool studies which is pending. For patient's possible postural orthostatic tachycardia heart rate measured in supine and standing position at 3,5,10 mintues. Difference in HR of 20-30bpm from supine to standing position each time noted. An echocardiogram was done which was normal. afaor Alcohol intoxication, possible alcohol withdrawal, dizziness likely from intoxication we monitored for symptoms. We found elevated blood alcohol levels and recent CIWA score was 5. Patient was given Ativan p.r.n., thiamine and folic acid repletion and counseled regarding cessation for more than 17 minutes. For hypomagnesemia, hypokalemia repleted the electrolytes and continue to monitor her lab. Patient also had transaminitis likely due to hepatomegaly and hepatic steatosis which was likely alcohol-induced has seen in CT abdomen / pelvis. She was counseled regarding cessation about alcohol and about the need to follow up outpatient with PCP which she communicated understanding. For the gallbladder distention and probable sludge we ordered a gallbladder ultrasound and results showed gallbladder wall thickness measuring 0.2 cm with biliary sludge. Patient is now stable to discharge. She will be discharged with Augmentin, folic acid, multivitamins, thiamine. Physical exam on the day of discharge: General Appearance: Alert, Oriented X3, Cooperative HEENT: Atraumatic, Mucous membranes moist/pink Respiratory: Diminished breath sounds bilaterally Cardiovascular: Tachycardic, Normal S1, Normal S2, No murmurs noted Abdominal: Presence of bowel sounds, Soft, no distention, no tenderness Extremities: No edema, Normal pulses, No tenderness/swelling, but not and tremors at fingers Skin: No Significant rash, no scars Neuro: Normal speech, no sensorimotor deficits Psych/Mental Status: normal mental status Re-counseled on alcohol use cessation for [address] Izquierdo Operations or Procedures CHEST RADIOGRAPH IMPRESSION: 1. No acute disease. Moderate diffuse increased prominence of the pulmonary vasculature. Exam: CT CT AB PEL WITH IV CON ONLY IMPRESSION: 1. Moderate circumferential wall thickening and edema of the cecum and ascending colon consistent with changes possibly related to colitis and/or inflammatory bowel disease. 2. Hepatomegaly and hepatic steatosis. 3. Gallbladder distention and probable sludge. Radiation optimization: All CT scans at this facility use at least one of these dose optimization techniques: automated exposure control mA and/or kV adjustment per patient size (includes targeted exams where dose is matched to clinical indication) or iterative reconstruction. EXAM: US GALLBLADDER Impression: 1. No evidence of acute right upper quadrant abnormalities. 2. Hepatomegaly with hepatic steatosis. CHEST RADIOGRAPH IMPRESSION: No acute disease. ECHO: Sinus rhythm. Normal chamber sizes. Valves are normal. The mitral tricuspid aortic and pulmonic are within normal limits. Left ventricular systolic performance is preserved at 55-60% with normal RV function. Doppler reveals no significant regurgitant jets. There is trace mitral and tricuspid regurgitation. No pericardial effusion masses or vegetations discernible. Condition at Discharge: Stable Final Diagnosis/Problems List # Sinus tachycardia & shortness of breaths likely from sepsis / anxiety / alcohol withdrawal # Acute Colits likely infectious # ? Acute gastro enteritis # Rule out C diff # ?postural orthostatic tachycardia # Alcohol intoxication # ? alcohol withdrawal- CIWA was 2 on discharge # Dizziness likely from intoxication # hypomagnesemia # Hypokalemia # Traansaminitis likely due to below # Hepatomegaly & hepatic steatosis likely alcohol-induced- # Gallbladder distention and probable sludge, rule out acute cholecystitis Discharge Disposition: Home Discharge Instruct/Medications Diet: Regular Activity: No Restrictions, As Tolerated Follow Up/Referral: fu with dr. Love on Saturday PM in D/C clinic in order to apply for IE and be referred to psychiatry, and surgery Medications: CONTINUE MEDS PRESCRIBED Scheduled Amoxicillin & Pot Clavulanate (Augmentin Tablet), 875 MG PO Q12HR Folic Acid (Folic Acid), 1 MG PO DAILY Multiple Vitamin (Mvi Tab), 1 TAB PO DAILY Thiamine Hcl (Vitamin B-1), 100 MG PO BS Discharge Statement: "Patient was advised to return to the ER or call 911 if any headaches, dizziness, shortness of breath, chest pain, abdominal pain, bleeding, fevers, or worsening of medical condition. Patient was counseled about treatment plan, medications, possible side effects, patientverbalized understanding. All questions were answered to the best of my ability. This discharge took greater then 30 minutes in planning, reviewing documentation, counseling the patient, and discussing with other team members." ASSESSMENT ASSESSMENT Assessment alcohol withdrawal Addendum Addendum Addendum I was physically present for the carter portions of the service provided to patient by THE RESIDENT. I have reviewed the documentation, discussed the case with resident and agree with the resident's documentation except as noted. Also the patient's clinical case was discussed with the patient's nurse. This medical document was created using an electronic medical record system with computerized dictation system. Although this document has been carefully reviewed, there might still be some phonetic and typographical errors. These areas are purely typographical due to imperfections of the software programs, and do not reflect any compromise in the patient's medical care. Late signature. Date of Service: Jun 04, 2025 Billing Provider: KEYANA IZQUIERDO MD Common Visit Codes: 24370-ENR/OBS DISCH DAY >30min Secondary Visit Codes: [id number] CHNG SMOKING >10MIN (16 minutes for alcohol use cessation) [facility] RESIDENT Jun 04, 2025 14:42 KEYANA IZQUIERDO MD Jun 05, 2025 06:23
== END 2025-06-04 13:40 | disposition home or self-care (01) | DRG 720 ==
LOC: ER 23:51 → EDBD 23:51 → OVERFLOW 06-02 07:41 → TELE-WESTW 06-02 17:58
PROVIDERS: ADMIT Internal Medicine; ATTEND Emergency Medicine
DX: A41.9 Sepsis, unspecified organism (principal); E87.20 Acidosis, unspecified; K81.0 Acute cholecystitis; R16.0 Hepatomegaly, not elsewhere classified; K76.0 Fatty (change of) liver, not elsewhere classified; F10.139 Alcohol abuse with withdrawal, unspecified; A09 Infectious gastroenteritis and colitis, unspecified; F10.129 Alcohol abuse with intoxication, unspecified; Z20.822 Contact with and (suspected) exposure to COVID-19; F41.9 Anxiety disorder, unspecified; E83.42 Hypomagnesemia; E87.6 Hypokalemia; K82.8 Other specified diseases of gallbladder; R74.01 Elevation of levels of liver transaminase levels; R79.89 Other specified abnormal findings of blood chemistry; Y90.0 Blood alcohol level of less than 20 mg/100 ml
CPT/HCPCS: 36415; 71045; 74177; 76705; 80053; 80074; 80202; 80307; 80320; 81001; 81025; 82962; 83605; 83735; 83880; 84443; 84484; 84702; 85025; 85048; 85379; 87040; 87045; 87426; 87427; 87804; 93005; 93306; 96361; 96374; G0378; J2405; J2470; J2543; J3490; J7060

== ENCOUNTER 2025-07-26 16:49 | Inpatient (IN) | payer MEDICAID ==
[~2025-07-26] VITALS: Ht 165.1 cm; Wt 67.1 kg
[~2025-07-26 16:49] MED LIST: AUG875T PO; FOLI-119 PO; MULTTAB99 PO; THIA100T10 PO
--- NOTE | 2025-07-26 16:55 | ECG ---
[facility] Test Date: 2025-07-26 Test Time: 16:51:32 Pat Name: TAHIRA GONZALEZ Department: ED Room: Gender: F Cook Tortilla: kenny : 1985 Requested By: CECE LUCIANO Order Number: [id number] Reading MD: Measurements Intervals [place] Rate: 148 P: 64 UT: 114 QRS: 71 QRSD: 88 T: -35 QT: 280 QTc: 440 Interpretive Statements Sinus tachycardia Repol abnrm suggests ischemia, diffuse leads Please click the below link to view image of tracing.
--- NOTE | 2025-07-26 17:26 | ED.PDOC ---
HPI Comments This is a 39-year-old female with past medical history of anxiety came to the hospital due to palpitation. Patient has history of palpitation 1 month back, admitted in hospital, workup including echocardiogram was normal. Per patient she gets more anxious whenever she drank. Per patient she drank 4 shots last night, and got more anxious today morning, subsequently got palpitation. She also reports of chest discomfort, shortness of breaths, nausea, and feeling sick. She denies fever, cough, headache, any motor/sensory deficits or any recent sick contact. EKG upon arrival, showed sinus tachycardia with no significant ST or T-wave changes. Chief Complaint: Palpitations Time Seen by MD: 17:11 Allergies: Coded Allergies: NO KNOWN ALLERGIES (Unverified , 06/02/25) Home Meds Active Scripts Thiamine Hcl (VITAMIN B-1) 100 Mg Tb, 100 MG PO BS for 30 Days, #30 TAB 2 Refills Prov:ART [place]TER[place] RESIDENT 06/04/25 Multiple Vitamin (Mvi Tab) 1 Tab Tb, 1 TAB PO DAILY for 30 Days, #30 TAB 2 Refills Prov:ART [place] RESIDENT 06/04/25 Folic Acid (Folic Acid) 1 Mg Tab, 1 MG PO DAILY for 30 Days, #30 TAB 2 Refills Prov:ART [place] RESIDENT 06/04/25 Amoxicillin & Pot Clavulanate (AUGMENTIN TABLET) 875 Mg Tb, 875 MG PO Q12HR for 7 Days, #14 TAB Prov:ART [place]TER[place] RESIDENT 06/04/25 Mode of Arrival: Ambulatory Past Medical History PAST MEDICAL HISTORY: Anxiety 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 Family History Family History: Reviewed,noncontributory to illness, No family hx of Cancer, No family hx of DM, No family hx of Heart tarsha, No family hx of HTN, No family hx ofKidney tarsha, No family hx of Liver tarsha, No family hx of Lung tarsha, No family hx of Stroke Social History Smoker: Non-Smoker Alcohol: Denies ETOH Use Drugs: Denies Drug Use Lives In: Home Physical Exam General Appearance: No Apparent Distress, Normal HEENT: Normal ENT Inspection, Pharynx Normal, TMs Normal Neck: Full Range of Motion, Non-Tender, Normal, Normal Inspection Respiratory: Chest Non-Tender, Lungs Clear, No Accessory Muscle Use, No Respiratory Distress, Normal Breath Sounds Cardiovascular: No Edema, No JVD, No Murmur, No Gallop, Normal Peripheral Pulses, Regular Rate/Rhythm Breast Exam: Deferred Gastrointestinal: No Organomegaly, Non Tender, No Pulsatile Mass, Normal Bowel Sounds, Soft Genitalia: Deferred Pelvic: Deferred Rectal: Deferred Extremities: No calf tenderness, Normal capillary refill, Normal inspection, Normal range of motion, Non-tender, No pedal edema Musculoskeletal : Apperance: Normal Neurologic: 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 Was a procedure done? Was a procedure done?: No CP Differential Dx Differential Diagnosis: A-fib Differential Diagnosis: Costochondritis, Esophageal reflux/spasm (Panic attack), Pericarditis X-Ray, Labs, Meds, VS Vital Signs Date Time Temp Pulse Resp B/P (MAP) Pulse Ox O2 Delivery O2 Flow Rate FiO2 07/26/25 18:08 125 14 133/96 (108) 99 07/26/25 17:56 120 07/26/25 17:20 Room Air* 0 21 07/26/25 16:59 98.3 148 20 136/99 96 98.3 07/26/25 16:51 148 Lab Test 07/26/25 18:02 07/26/25 17:00 Range/Units Troponin I High Sensitivity Pending < 3 L </=34 ng/L White Blood Count 5.9 4.4-10.8 10^3/uL Red Blood Count 4.52 4.0-5.20 10^6/uL Hemoglobin 14.5 12.2-16.2 g/dL Hematocrit 42.4 36.0-46.0 % Mean Corpuscular Volume 93.8 80.0-100.0 fL Mean Corpuscular Hemoglobin 32.1 H 28.0-32.0 pg Mean Corpuscular Hemoglobin Concent 34.2 32.0-36.0 g/dL Red Cell Distribution Width 14.7 H 11.8-14.3 % Platelet Count 291 140-450 10^3/uL Mean Platelet Volume 7.3 6.9-10.8 fL Neutrophils (%) (Auto) 53.9 37.0-80.0 % Lymphocytes (%) (Auto) 37.7 10.0-50.0 % Monocytes (%) (Auto) 5.8 0.0-12.0 % Eosinophils (%) (Auto) 0.5 0.0-7.0 % Basophils (%) (Auto) 2.1 H 0.0-2.0 % Neutrophils # (Auto) 3.2 1.6-8.6 10 ^3/uL Lymphocytes # (Auto) 2.2 0.4-5.4 10 ^3/uL Monocytes # (Auto) 0.3 0-1.3 10 ^3/uL Eosinophils # (Auto) 0 0-0.8 10 ^3/uL Basophils # (Auto) 0.1 0-0.2 10 ^3/uL Nucleated Red Blood Cells 0.0 % Sodium Level 141 136-145 mmol/L Potassium Level 3.9 3.5-5.1 mmol/L Chloride Level 100 98-107 mmol/L Carbon Dioxide Level 21 20-31 mmol/L Anion Gap 20 H 5-15 Blood Urea Nitrogen 7 L 9-23 mg/dL Creatinine 0.71 0.550-1.02 mg/dL Glomerular Filtration Rate Calc 112 >90 mL/min BUN/Creatinine Ratio 9.9 L 10.0-20.0 Serum Glucose 99 74-106 mg/dL Calcium Level 9.7 8.7-10.4 mg/dL Total Bilirubin 1.2 H 0.2-1.0 mg/dL Aspartate Amino Transferase (AST) 589 H 13-40 U/L Alanine Aminotransferase (ALT) 333 H 7-40 U/L Alkaline Phosphatase 166 H 46-116 U/L Total Protein 8.7 H 5.7-8.2 g/dL Albumin 4.9 H 3.2-4.8 g/dL Beta HCG, Quantitative Pending Plasma/Serum Blood Alcohol 225.1 H <10 mg/dL Current Medications Medications (Trade) Dose Ordered Sig/Kate Route Start Time Stop Time Status Last Admin Thiamine HCl 100 mg ONCE ONCE IV 07/26/25 17:30 07/26/25 17:31 DC 07/26/25 17:30 Lorazepam (Ativan Inj) 1 mg ONCE ONCE IM 07/26/25 17:30 07/26/25 17:31 DC 07/26/25 17:31 Time of 1ST Reevaluation: 18:30 Reevaluation 1ST: Unchanged Patient Education/Counseling: Diagnosis, Treatment, Prognosis, Need For Follow Up Family Education/Counseling: No Family Present Comments Patient came to the hospital due to palpitation. EKGs shows sinus tachycardia with no significant ST or T-wave changes. The pressure was within normal limits. CBC within normal limits. CMP showed raised LFT Serum alcohol level was raised. Patient was given Ativan, folic acid and thiamine. Patient will be admitted in for inpatient care and further workup. SEPSIS Sepsis Screen Date sepsis recognized/suspect: Jul 26, 2025 Time Sepsis recognized/suspect: 1658 Recent Procedure: No On Antibiotic Therapy: No Respiratory Rate >20: No Heart Rate >90: Yes Temp<36 C (96.8 F) or >38.3 C: No SBP <90 or MAP <65 mmHG: No New Acute Mental Status Change: No Is the patient on CPAP, BIPAP,: No Physician Orders Troponin-I Hs (07/26/25 16:51) Troponin-I Hs (07/26/25 17:51) Electrocardigram (07/26/25 19:51) Beta Hcg, Quantitative (07/26/25 17:22) Drug Screen (07/26/25 17:22) Urine Dip (07/26/25 ) Vital Signs Date Time Temp Pulse Resp B/P (MAP) Pulse Ox O2 Delivery O2 Flow Rate FiO2 07/26/25 18:08 125 14 133/96 (108) 99 07/26/25 17:56 120 07/26/25 17:20 Room Air* 0 21 07/26/25 16:59 98.3 148 20 136/99 96 98.3 07/26/25 16:51 148 Laboratory Tests Test 07/26/25 17:00 White Blood Count 5.9 10^3/uL (4.4-10.8) Medications Medications Dose Ordered Sig/Kate Route Start Time Stop Time Status Last Admin Dose Admin Lorazepam 1 mg ONCE ONCE IM 07/26/25 17:30 07/26/25 17:31 DC 07/26/25 17:31 Thiamine HCl 100 mg ONCE ONCE IV 07/26/25 17:30 07/26/25 17:31 DC 07/26/25 17:30 Departure 1 Departure Time of Disposition: 18:31 Impression: Primary Impression: Alcohol intoxication Additional Impressions: Alcoholic hepatitis Palpitation Disposition: 09 ADMITTED INPATIENT Admit to: Tele Condition: Guarded Critical Care Note Critical Care Time?: No Stability Stability form required: No Heart Score Heart Score: Heart Score Response (Comments) Value History N/A 0 EKG N/A 0 Age N/A 0 Risk Factors N/A 0 Troponin N/A 0 Total 0 EMANUEL MAX Jul 26, 2025 17:26
[2025-07-26] MEDS: FOLIC ACID 1 MG in D5W 5% 50 ML INJ ONE (17:30)
[2025-07-26] MEDS: THIAMINE 100mg/ml INJ (200mg/2ml VIAL) IV ONE (17:30)
[2025-07-26] MEDS: LORazepam 2MG/ML-1ML VIAL IM ONE (17:31)
[2025-07-26 17:58] LABS: Hematocrit 42.4 % (36.0-46.0); Hemoglobin 14.5 g/dL (12.2-16.2); Mean Corpuscular Hemoglobin 32.1 pg (28.0-32.0); Mean Corpuscular Volume 93.8 fL (80.0-100.0); Nucleated Red Blood Cells % 0.0 %
--- NOTE | 2025-07-26 17:58 | ECG ---
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
[2025-07-26 18:12] LABS: Alanine Aminotransferase 333 U/L (7-40); Albumin 4.9 g/dL (3.2-4.8); Alkaline Phosphatase 166 U/L (46-116); Anion Gap 20 (5-15); BUN/Creatinine Ratio 9.9 (10.0-20.0); Bilirubin, Total 1.2 mg/dL (0.2-1.0); Blood Urea Nitrogen 7 mg/dL (9-23); Calcium 9.7 mg/dL (8.7-10.4); Carbon Dioxide 21 mmol/L (20-31); Chloride 100 mmol/L (98-107); Glucose 99 mg/dL (74-106); Potassium 3.9 mmol/L (3.5-5.1); Sodium 141 mmol/L (136-145); Total Protein 8.7 g/dL (5.7-8.2)
[2025-07-26 19:30] VITALS: PULSE 150; RESP 15; O2SAT 95
[2025-07-26] MEDS ORDERED: LORazepam 0.5 MG TAB PO ONE (19:30)
[2025-07-26] MEDS: PROPRANOLOL HCL 20 MG TAB PO ONE (19:31)
[2025-07-26] MEDS: LORazepam 2MG/ML-1ML VIAL IV ONE (19:32)
[2025-07-26] MEDS ORDERED: MORPHINE SULFATE INJ 2 MG/ml SYRG IV PRN (20:00)
[2025-07-26] MEDS ORDERED: NITROGLYCERIN 0.4 MG SL TAB SL PRN (20:00)
[2025-07-26] MEDS ORDERED: LORazepam 2MG/ML-1ML VIAL IV PRN (21:00)
[2025-07-26] MEDS ORDERED: ONDANSETRON HCL 4 MG/2 ML VIAL IV PRN (21:00)
[2025-07-26] MEDS ORDERED: THIAMINE HCL 100 MG TAB PO ONE (21:02)
[2025-07-26] MEDS: SODIUM CHLORIDE 0.9% 1,000 ML IV ONE (21:13)
--- NOTE | 2025-07-26 22:37 | DVHHP2 ---
History of Present Illness Reason for Visit: Palpitations History of Present Illness 39-year-old female presents for evaluation of palpitations. Patient reports developing palpitations since today. She states drinking alcohol since yesterday. She reports that whenever she drinks her anxiety worsens. Reports some nausea as well. No chest pain at the moment. Past Medical History Anxiety, liver cirrhosis Past Surgical History Denies Family History Noncontributory Smoke: No ALCOHOL: heavy Drugs: None Review of Systems Review of Systems Review of systems are currently negative otherwise addressed in HPI. Allergies: Coded Allergies: NO KNOWN ALLERGIES (Unverified , 06/02/25) Medications Current Medications Medications Dose Ordered Sig/Kate Route Start Time Stop Time Status Last Admin Dose Admin Nitroglycerin 0.4 mg Q5MINP PRN SL 07/26/25 20:00 Morphine Sulfate 2 mg Q30M PRN IV 07/26/25 20:00 Thiamine HCl 100 mg DAILY PO 07/27/25 10:00 Chlordiazepoxide HCl 50 mg Q8H PO 07/26/25 21:00 07/27/25 13:01 07/26/25 21:12 50 MG Chlordiazepoxide HCl 50 mg Q12HR PO 07/27/25 10:00 07/27/25 22:01 Chlordiazepoxide HCl 25 mg Q12HR PO 07/28/25 10:00 07/28/25 22:01 Chlordiazepoxide HCl 25 mg QAM PO 07/29/25 07:00 07/29/25 07:01 Lorazepam 1 mg Q12HP PRN IV 07/26/25 21:00 Temazepam 15 mg QHSP PRN PO 07/26/25 21:00 Ondansetron HCl 4 mg Q4HP PRN IV 07/26/25 21:00 Exam Vital Signs Vital Signs Date Time Temp Pulse Resp B/P (MAP) Pulse Ox O2 Delivery O2 Flow Rate FiO2 07/26/25 20:00 142 07/26/25 19:31 120/91 07/26/25 19:30 98.3 15 95 98.3 07/26/25 19:30 Room Air* 0 21 Exam Gen: 39-year-old female in mild distress Skin: Warm, dry, normal color and texture, no rash. HEENT: Normocephalic atraumatic, mucous membranes moist and pink. Neck: Cervical and supraclavicular nodes normal without enlargement, trachea is midline, thyroid gland is normal without masses. Pulmonary: Clear to auscultation and percussion bilaterally. Cardiac: Regular rate and rhythm. No murmur Abdomen: Soft, nontender, nondistended, bowel sounds present all 4 quadrants, no guarding, no rigidity, no organomegaly. Extremities: No cyanosis, clubbing, no edema Neuro: Cranial nerves II through XII grossly intact, normal affect and speech, no focal motor deficits. Labs/Xrays Labs Test 07/26/25 18:02 07/26/25 17:00 Range/Units Troponin I High Sensitivity < 3 L </=34 ng/L White Blood Count 5.9 4.4-10.8 10^3/uL Red Blood Count 4.52 4.0-5.20 10^6/uL Hemoglobin 14.5 12.2-16.2 g/dL Hematocrit 42.4 36.0-46.0 % Mean Corpuscular Volume 93.8 80.0-100.0 fL Mean Corpuscular Hemoglobin 32.1 H 28.0-32.0 pg Mean Corpuscular Hemoglobin Concent 34.2 32.0-36.0 g/dL Red Cell Distribution Width 14.7 H 11.8-14.3 % Platelet Count 291 140-450 10^3/uL Mean Platelet Volume 7.3 6.9-10.8 fL Neutrophils (%) (Auto) 53.9 37.0-80.0 % Lymphocytes (%) (Auto) 37.7 10.0-50.0 % Monocytes (%) (Auto) 5.8 0.0-12.0 % Eosinophils (%) (Auto) 0.5 0.0-7.0 % Basophils (%) (Auto) 2.1 H 0.0-2.0 % Neutrophils # (Auto) 3.2 1.6-8.6 10 ^3/uL Lymphocytes # (Auto) 2.2 0.4-5.4 10 ^3/uL Monocytes # (Auto) 0.3 0-1.3 10 ^3/uL Eosinophils # (Auto) 0 0-0.8 10 ^3/uL Basophils # (Auto) 0.1 0-0.2 10 ^3/uL Nucleated Red Blood Cells 0.0 % Sodium Level 141 136-145 mmol/L Potassium Level 3.9 3.5-5.1 mmol/L Chloride Level 100 98-107 mmol/L Carbon Dioxide Level 21 20-31 mmol/L Anion Gap 20 H 5-15 Blood Urea Nitrogen 7 L 9-23 mg/dL Creatinine 0.71 0.550-1.02 mg/dL Glomerular Filtration Rate Calc 112 >90 mL/min BUN/Creatinine Ratio 9.9 L 10.0-20.0 Serum Glucose 99 74-106 mg/dL Calcium Level 9.7 8.7-10.4 mg/dL Total Bilirubin 1.2 H 0.2-1.0 mg/dL Aspartate Amino Transferase (AST) 589 H 13-40 U/L Alanine Aminotransferase (ALT) 333 H 7-40 U/L Alkaline Phosphatase 166 H 46-116 U/L Total Protein 8.7 H 5.7-8.2 g/dL Albumin 4.9 H 3.2-4.8 g/dL Beta HCG, Quantitative 0.0 L 1.5-4.2 mIU/mL Plasma/Serum Blood Alcohol 225.1 H <10 mg/dL SEPSIS Sepsis Screen Date sepsis recognized/suspect: Jul 26, 2025 Time Sepsis recognized/suspect: 1929 Recent Procedure: No On Antibiotic Therapy: No Respiratory Rate >20: No Heart Rate >90: Yes Temp<36 C (96.8 F) or >38.3 C: No SBP <90 or MAP <65 mmHG: No New Acute Mental Status Change: No Is the patient on CPAP, BIPAP,: No Physician Orders Electrocardigram (07/26/25 19:51) Drug Screen (07/26/25 17:22) Urine Dip (07/26/25 ) Admit (07/26/25 19:55) Nitroglycerin Sublingual (Ntrostat Subli (07/26/25 20:00) Morphine Sulfate Injection (07/26/25 20:00) Stat Ekg For Chest Pain (07/26/25 19:55) Notify Of Changes From Base (07/26/25 19:55) Miter Operator 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 (07/26/25 19:55) Emergency Dysrhythmia Protocol (07/26/25 19:55) Rhythm Strips Once Every Shift (07/26/25 19:55) Oxygen By Nasal Cannula (07/26/25 19:55) Computer Aided Design Technician (07/26/25 ) Thiamine Tab (07/27/25 10:00) Chlordiazepoxide Hcl Capsule (Librium Ca (07/26/25 21:00) Chlordiazepoxide Hcl Capsule (Librium Ca (07/27/25 10:00) Chlordiazepoxide Hcl Capsule (Librium Ca (07/28/25 10:00) Chlordiazepoxide Hcl Capsule (Librium Ca (07/29/25 07:00) Regular Diet (07/27/25 Breakfast) Lorazepam 2mg/Ml Inj (Ativan Inj) (07/26/25 21:00) Temazepam (Restoril) (07/26/25 21:00) Ondansetron Hcl (Zofran) (07/26/25 21:00) Comprehensive Metabolic Panel (07/27/25 04:00) Condition: Fair (07/26/25 20:49) Bedrest With Bathroom Privileg (07/26/25 20:49) Hepatic Diet (50gmpro,2gmna) (07/27/25 Breakfast) Vital Signs Date Time Temp Pulse Resp B/P (MAP) Pulse Ox O2 Delivery O2 Flow Rate FiO2 07/26/25 20:00 142 07/26/25 19:31 150 120/91 07/26/25 19:30 98.3 150 15 120/91 (101) 95 98.3 07/26/25 19:30 150 15 95 Room Air* 0 21 07/26/25 19:18 151 19 120/91 (101) 95 07/26/25 18:08 125 14 133/96 (108) 99 07/26/25 17:56 120 07/26/25 17:20 Room Air* 0 21 07/26/25 16:59 98.3 148 20 136/99 96 98.3 07/26/25 16:51 148 Laboratory Tests Test 07/26/25 17:00 White Blood Count 5.9 10^3/uL (4.4-10.8) Medications Medications Dose Ordered Sig/Kate Route Start Time Stop Time Status Last Admin Dose Admin Chlordiazepoxide HCl 50 mg Q8H PO 07/26/25 21:00 07/27/25 13:01 07/26/25 21:12 50 MG Lorazepam 1 mg ONCE ONCE IM 07/26/25 17:30 07/26/25 17:31 DC 07/26/25 17:31 1 MG Lorazepam 1 mg ONCE ONCE IV 07/26/25 19:30 07/26/25 19:31 DC 07/26/25 19:32 1 MG Propranolol HCl 20 mg ONCE ONCE PO 07/26/25 19:30 07/26/25 19:31 DC 07/26/25 19:31 20 MG Sodium Chloride 1,000 ml @ 1,000 mls/hr Q1H ONCE IV 07/26/25 21:00 07/26/25 21:59 DC 07/26/25 21:13 1,000 MLS/HR Thiamine HCl 100 mg ONCE ONCE IV 07/26/25 17:30 07/26/25 17:31 DC 07/26/25 17:30 100 MG Assessment/Plan Assessment/Plan Assessment Alcohol intoxication Alcoholic liver cirrhosis Transaminitis Plan Ad[place] the [place] [facility] [place] Librium/thiamine/folic acid Continue treatment per orders Plan discussed with: Patient My Orders Orders - NACHO WALTERS Procedure Category Date Status Time Admit ADMIT 07/26/25 Transmitted 19:55 Nitroglycerin PHA 07/26/25 In Process Sublingual (Ntrostat 20:00 Morphine Sulfate PHA 07/26/25 In Process Injection 20:00 Stat Ekg For Chest FREDDIE 07/26/25 In Process Pain 19:55 Notify Of Changes FREDDIE 07/26/25 In Process From Base 19:55 Miter Operator For FREDDIE 07/26/25 In Process 24 Hours 19:55 Emergency Dysrhythmia FREDDIE 07/26/25 In Process Protocol 19:55 Rhythm Strips Once FREDDIE 07/26/25 In Process Every Shift 19:55 Oxygen By Nasal RT 07/26/25 Transmitted Cannula 19:55 Thiamine Tab PHA 07/27/25 In Process 10:00 Chlordiazepoxide Hcl PHA 07/26/25 In Process Capsule (Librium Ca 21:00 Chlordiazepoxide Hcl PHA 07/27/25 In Process Capsule (Librium Ca 10:00 Chlordiazepoxide Hcl PHA 07/28/25 In Process Capsule (Librium Ca 10:00 Chlordiazepoxide Hcl PHA 07/29/25 In Process Capsule (Librium Ca 07:00 Regular Diet DIET 07/27/25 Transmitted Breakfast Lorazepam 2mg/Ml Inj PHA 07/26/25 In Process (Ativan Inj) 21:00 Temazepam (Restoril) PHA 07/26/25 In Process 21:00 Ondansetron Hcl PHA 07/26/25 In Process (Zofran) 21:00 Comprehensive LAB 07/27/25 Verified Metabolic Panel 04:00 Condition: Fair FREDDIE 07/26/25 In Process 20:49 Bedrest With Bathroom FREDDIE 07/26/25 In Process Privileg 20:49 Hepatic Diet DIET 07/27/25 Transmitted (50gmpro,2gmna) Breakfast Date of Service: Jul 26, 2025 Billing Provider: NACHO WALTERS Common Visit Codes: [id number] INP/OBS CARE (MOD) NACHO WALTERS Jul 26, 2025 22:37
[2025-07-26] MEDS: TEMAZEPAM 15 MG CAP PO PRN (22:53)
[2025-07-27 00:09] VITALS: BP 124/91; PULSE 108; RESP 20; TEMP 98.3; O2SAT 96
[2025-07-27 01:43] LABS: Benzodiazephine Screen, Urine Pos (NEGATIVE)
[2025-07-27 01:47] LABS: Amphetamine Screen, Urine Neg (NEGATIVE); Barbiturate Scree,Urine Neg (NEGATIVE); Cannabinoid Screen, Urine Neg (NEGATIVE); Cocaine Screen, Urine Neg (NEGATIVE); Opiate Scree,Urine Neg (NEGATIVE); Phencyclidine Screen, Urine Neg (NEGATIVE)
[2025-07-27 05:26] VITALS: BP 127/89; PULSE 105; RESP 19; TEMP 98.1; O2SAT 97
[2025-07-27 05:29] LABS: Alanine Aminotransferase 240 U/L (7-40); Albumin 4.3 g/dL (3.2-4.8); Alkaline Phosphatase 144 U/L (46-116); Anion Gap 11 (5-15); BUN/Creatinine Ratio 10.2 (10.0-20.0); Blood Urea Nitrogen 6 mg/dL (9-23); Calcium 9.0 mg/dL (8.7-10.4); Carbon Dioxide 24 mmol/L (20-31); Chloride 101 mmol/L (98-107); Glucose 99 mg/dL (74-106); Potassium 3.8 mmol/L (3.5-5.1); Sodium 136 mmol/L (136-145); Total Protein 7.4 g/dL (5.7-8.2)
[2025-07-27 05:34] LABS: Bilirubin, Total 2.5 mg/dL (0.2-1.0)
[2025-07-27 08:45] VITALS: BP 139/97; PULSE 101; RESP 16; TEMP 98; O2SAT 96
[2025-07-27] MEDS: THIAMINE HCL 100 MG TAB PO SCH (09:10)
== END 2025-07-27 10:37 | disposition left against medical advice (07) | DRG 280 ==
LOC: ER 16:49 → OVERFLOW 19:55
PROVIDERS: ADMIT Nurse Practitioner Acute Care; ATTEND Nurse Practitioner Acute Care
DX: K70.30 Alcoholic cirrhosis of liver without ascites (principal); K70.10 Alcoholic hepatitis without ascites; F10.129 Alcohol abuse with intoxication, unspecified; F41.9 Anxiety disorder, unspecified; R00.2 Palpitations; Z53.29 Procedure and treatment not carried out because of patient's decision for other reasons; R74.01 Elevation of levels of liver transaminase levels; Y90.9 Presence of alcohol in blood, level not specified
CPT/HCPCS: 36415; 80053; 80307; 80320; 84484; 84702; 85025; 93005; 96372; 96374; G0378; J2405; J7060

== ENCOUNTER 2025-08-04 02:51 | Inpatient (IN) | payer MEDICAID ==
[~2025-08-04] VITALS: Ht 170.2 cm; Wt 65.8 kg
--- NOTE | 2025-08-04 03:19 | ECG ---
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
[2025-08-04] MEDS: SODIUM CHLORIDE 0.9% 1,000 ML IV ONE ×4 (03:22→11:30)
[2025-08-04] MEDS: MULTIPLE VITAMIN TAB PO ONE ×2 (03:26→15:00)
[2025-08-04] MEDS: FOLIC ACID 1 MG TAB PO ONE ×2 (03:26→14:54)
[2025-08-04] MEDS: THIAMINE HCL 100 MG TAB PO ONE ×2 (03:26→15:00)
--- NOTE | 2025-08-04 03:39 | ED.PDOC ---
Altered Mental Status HPI Comments This is a 40 year-old female who presents to the ED via EMS with a chief complaint of syncopal episode while urinating X1 hour ago. Patient reports additional chest discomfort and head pain S/P syncopal episode. Patient reports prior to syncopal episode, she has had a decrease in appetite. Patient also reports she drinks often, with most recent ETOH ingestion at 2300 last night.Patient reports being diagnosed with a recent UTI and taking Antibiotics daily, as prescribed. Per EMS, patient was given Zofran IV and 500mL Saline Bolus en route. Patient has no further complaints at this time and otherwise denies N/V/D, dizziness, blurred vision, slurred speech, fever, chills, or chest pain. Past medical history includes Elevated LFTs and Alcohol Withdrawal. REVIEW OF SYSTEMS: General: No fever, no chills, no fatigue HEENT: No sore throat, no earache, no congestion, no neck pain. Cardiac: Positive Chest Discomfort. No chest pain. No palpitations. Lungs: No shortness of breath, no cough. GI: No nausea, no vomiting, no diarrhea, no constipation, no abdominal pain : No dysuria, frequency, or urgency. Musculoskeletal: No joint pain , no joint swelling, no extremity edema. Skin: No rash, no itching. Neuro: Positive Syncope. No headache, dizziness, or weakness PHYSICAL EXAM: General: Awake, alert and oriented. No acute distress. Skin: Skin in warm, dry and intact. Appropriate color for ethnicity. HEENT: The head is normocephalic and atraumatic. Conjunctivae are clear without exudates or hemorrhage. Sclera is non-icteric. EOM are intact. No signs of nystagmus. Eyelids are normal in appearance without swelling or lesions. Oral mucosa is pink and moist Neck: The neck is supple with painful range of motion. No JVD. Cardiac: Positive Tachycardic with regular rhythm. No murmurs, gallops, or rubs are auscultated. Respiratory: No signs of respiratory distress. Lung sounds are clear in all lobe s bilaterally without rales, rhonchi, or wheezes. Abdominal: Abdomen is soft, non-tender mild distention, no guarding or rigidity. Bowel sounds are present and normoactive in all four quadrants. Extremities: Upper and lower extremities are atraumatic in appearance without deformity or edema. Neurological: The patient is awake, alert and oriented to person, place, and time with normal speech. Speech is clear. There is no facial asymmetry. Psychiatric: Appropriate mood and affect. Good judgement and insight. 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 Was a procedure done?: No Differential Diagnosis (ALOC) Differential Diagnosis: Dehydration, Closed Head Injury, ETOH Intoxication, Other Other Differential Diagnosis Differential diagnoses considered include but are not limited to cardiac structural disease, arrhythmia, acute coronary syndrome, orthostasis, pulmonary embolism, dissection, seizure, basilar stroke, other. X-Ray, Labs, Meds, VS Vital Signs Date Time Temp Pulse Resp B/P (MAP) Pulse Ox O2 Delivery O2 Flow Rate FiO2 08/04/25 06:16 120 15 98 Nasal Cannula* 2 28 08/04/25 06:00 117 13 12/90 (64) 98 08/04/25 04:10 119 08/04/25 03:33 99.0 127 10 126/94 (105) 96 99.0 08/04/25 03:08 118 08/04/25 02:58 99.0 122 18 122/85 99 99.0 Lab Test 08/04/25 06:48 08/04/25 05:00 08/04/25 04:55 08/04/25 03:50 Range/Units Lactic Acid Level 3.0 *H 3.3 *H 0.4-2.0 mmol/L Troponin I High Sensitivity < 3 L < 3 L < 3 L </=34 ng/L Urine Color Light-yellow Yellow Urine Clarity Turbid H Clear Urine pH 6.0 5.0-9.0 Urine Specific [place] 1.012 1.001-1.035 Urine Protein Negative Negative Urine Ketones Trace Negative Urine Blood Negative Negative /uL Urine Nitrite Negative Negative Urine Bilirubin Negative Negative Urine Urobilinogen Normal Negative mg/dL Urine Leukocyte Esterase 1+ Negative /uL Urine RBC None seen 0 - 4 /hpf Urine Microscopic WBC 3 0-5 /HPF Urine Squamous Epithelial Cells Mod <5 /hpf Urine Bacteria None seen None Seen /hpf Urine Mucus Few None Seen Urine Glucose Normal Normal mg/dL Urine Opiates Screen Neg NEGATIVE Urine Fentanyl Screen Neg NEGATIVE Urine Barbiturates Screen Neg NEGATIVE Urine Phencyclidine Screen Neg NEGATIVE Urine Amphetamines Screen Neg NEGATIVE Urine Benzodiazepines Screen Pos NEGATIVE Urine Cocaine Screen Neg NEGATIVE Urine Cannabinoids Screen Neg NEGATIVE White Blood Count 3.9 L 4.4-10.8 10^3/uL Red Blood Count 3.75 L 4.0-5.20 10^6/uL Hemoglobin 12.2 12.2-16.2 g/dL Hematocrit 35.3 L 36.0-46.0 % Mean Corpuscular Volume 94.3 80.0-100.0 fL Mean Corpuscular Hemoglobin 32.6 H 28.0-32.0 pg Mean Corpuscular Hemoglobin Concent 34.6 32.0-36.0 g/dL Red Cell Distribution Width 14.8 H 11.8-14.3 % Platelet Count 214 140-450 10^3/uL Mean Platelet Volume 7.4 6.9-10.8 fL Neutrophils (%) (Auto) 48.2 37.0-80.0 % Lymphocytes (%) (Auto) 38.2 10.0-50.0 % Monocytes (%) (Auto) 11.4 0.0-12.0 % Eosinophils (%) (Auto) 1.3 0.0-7.0 % Basophils (%) (Auto) 0.9 0.0-2.0 % Neutrophils # (Auto) 1.9 1.6-8.6 10 ^3/uL Lymphocytes # (Auto) 1.5 0.4-5.4 10 ^3/uL Monocytes # (Auto) 0.4 0-1.3 10 ^3/uL Eosinophils # (Auto) 0 0-0.8 10 ^3/uL Basophils # (Auto) 0 0-0.2 10 ^3/uL Nucleated Red Blood Cells 0.2 % Sodium Level 144 136-145 mmol/L Potassium Level 3.3 L 3.5-5.1 mmol/L Chloride Level 104 98-107 mmol/L Carbon Dioxide Level 24 20-31 mmol/L Anion Gap 16 H 5-15 Blood Urea Nitrogen < 5 L 9-23 mg/dL Creatinine 0.58 0.550-1.02 mg/dL Glomerular Filtration Rate Calc 118 >90 mL/min BUN/Creatinine Ratio 8.6 L 10.0-20.0 Serum Glucose 92 74-106 mg/dL Calcium Level 8.4 L 8.7-10.4 mg/dL Total Bilirubin 0.7 0.2-1.0 mg/dL Aspartate Amino Transferase (AST) 469 H 13-40 U/L Alanine Aminotransferase (ALT) 278 H 7-40 U/L Alkaline Phosphatase 171 H 46-116 U/L Total Protein 7.0 5.7-8.2 g/dL Albumin 4.0 3.2-4.8 g/dL Plasma/Serum Blood Alcohol 243.4 H <10 mg/dL Current Medications Medications (Trade) Dose Ordered Sig/Kate Route Start Time Stop Time Status Last Admin Thiamine HCl 100 mg ONCE ONCE PO 08/04/25 03:15 08/04/25 03:16 DC 08/04/25 03:26 Folic Acid 1 mg ONCE ONCE PO 08/04/25 03:15 08/04/25 03:16 DC 08/04/25 03:26 Multivitamins (Mvi Tab) 1 tab ONCE ONCE PO 08/04/25 03:15 08/04/25 03:16 DC 08/04/25 03:26 Sodium Chloride 1,000 ml @ 1,000 mls/hr Q1H ONCE IV 08/04/25 03:15 08/04/25 04:14 DC 08/04/25 03:22 Sodium Chloride 1,000 ml @ 1,000 mls/hr Q1H ONCE IV 08/04/25 05:00 08/04/25 05:59 DC 08/04/25 05:03 Sodium Chloride 1,000 ml @ 130 mls/hr Q7H42M ONCE IV 08/04/25 05:00 08/04/25 12:41 DC 08/04/25 05:07 Vancomycin HCl 250 ml @ 250 mls/hr ONCE ONCE IV 08/04/25 05:00 08/04/25 05:59 DC 08/04/25 05:12 Piperacillin Sod/ Tazobactam Sod 100 ml @ 100 mls/hr ONCE ONCE IV 08/04/25 05:00 08/04/25 05:59 DC 08/04/25 06:00 Potassium Chloride (Klor-Con Tablet) 40 meq ONCE ONCE PO 08/04/25 05:00 08/04/25 05:01 DC 08/04/25 05:13 Lorazepam (Ativan Tablet) 1 mg ONCE ONCE PO 08/04/25 06:00 08/04/25 06:01 DC 08/04/25 05:58 Lorazepam (Ativan Tablet) 1 mg ONCE ONCE PO 08/04/25 09:15 08/04/25 09:16 DC 08/04/25 09:32 [place] [id number] Ph: [phone] DIAGNOSTIC IMAGING Diagnostic Imaging Report : [id number] Signed PATIENT: TAHIRA GONZALEZACCT: [id number] UNIT: [id number] : 1985 LOC: ER ROOM / BED: / AGE / SEX: 40 / F ADM STATUS: REG ER SERVICE [id number] ORDERING PHYSICIAN: JOYCE SAGASTUME MD PROCEDURE(s): CXR1 - CHEST XRAY 1 VIEW REASON: Syncope ORDER NUMBER(s): [id number], ACCESSION NUMBER(s): [id number] CHEST RADIOGRAPH Indication: Syncope Technique: Single frontal view of the chest was obtained COMPARISON: XY CHEST PORTABLE on DOS: 06/03/25, XY CHEST XRAY 1 VIEW on DOS: 06/02/25 FINDINGS: Lines and Tubes: None Lungs: Clear Pleura: No effusion. No pneumothorax. Cardiomediastinal contours: Unremarkable Bones: Unremarkable IMPRESSION: 1. No acute disease. Images Reviewed?: Images reviewed and evaluated by pr Time of 1ST Reevaluation: 03:52 Reevaluation 1ST: Unchanged Patient Education/Counseling: Other (Need for admission) Family Education/Counseling: No Family Present Medical Screening: No EMC Exist At This Time SEPSIS Sepsis Screen Date sepsis recognized/suspect: Aug 04, 2025 Time Sepsis recognized/suspect: 300 Recent Procedure: No On Antibiotic Therapy: Yes Respiratory Rate >20: No Heart Rate >90: Yes Temp<36 C (96.8 F) or >38.3 C: No SBP <90 or MAP <65 mmHG: No New Acute Mental Status Change: No Is the patient on CPAP, BIPAP,: No Physician Orders Chest Xray 1 View (08/04/25 03:09) Electrocardigram (08/04/25 03:09) Editorial Intern (08/04/25 ) Electrocardigram (08/04/25 04:09) Fall Precautions Initiated (08/04/25 03:09) Blood Culture (08/04/25 03:19) Vital Signs Date Time Temp Pulse Resp B/P (MAP) Pulse Ox O2 Delivery O2 Flow Rate FiO2 08/04/25 06:16 120 15 98 Nasal Cannula* 2 28 08/04/25 06:00 117 13 12/90 (64) 98 08/04/25 04:10 119 08/04/25 03:33 99.0 127 10 126/94 (105) 96 99.0 08/04/25 03:08 118 08/04/25 02:58 99.0 122 18 122/85 99 99.0 Laboratory Tests Test 08/04/25 03:50 08/04/25 06:48 Lactic Acid Level 3.3 mmol/L (0.4-2.0) *H 3.0 mmol/L (0.4-2.0) *H White Blood Count 3.9 10^3/uL (4.4-10.8) L Medications Medications Dose Ordered Sig/Kate Route Start Time Stop Time Status Last Admin Dose Admin Lorazepam 1 mg ONCE ONCE PO 08/04/25 09:15 08/04/25 09:16 DC 08/04/25 09:32 Departure 1 Departure Time of Disposition: 04:47 Impression: Primary Impression: Syncope Additional Impression: Sepsis Disposition: ADMITTED INPATIENT Condition: Guarded e-Prescriptions No Active Prescriptions or Reported Meds Comments MDM: 40-year-old female who presented with syncope Workup suspicious for sepsis Antibiotics and IV fluids initiated in the ED Patient admitted to hospitalist service for further treatment, evaluation and monitoring. Extensive evaluation was performed in attempt to identify or rule out: (See differential diagnosis section) The following tests were ordered, and results were reviewed by me and discussed with patient: (See diagnostic results section) The following test were independently interpreted by me: EKG I reviewed and agreed with the following test results read by other providers: Chest x-ray I reviewed the following notes from the pt's past medical encounters: Encounters July 26, 2025 for alcohol intoxication and May 2025 for tachycardia Additional information was gathered from interviewing the following independent historians: EMS personnel Discussion of management or test interpretation with external physician/other qualified health direct care specialist: N/A Addressed an acute or chronic illness that poses a threat to life or bodily function: Sepsis Decision regarding hospitalization or escalation of hospital level of care: Risk and benefits of admission for further treatment of patient's condition was considered. Due to patient's current clinical condition, high risk of decline and poor outcome if discharged and need for further inpatient management and monitoring, patient will be admitted to the hospital. Critical Care Note Critical Care Time?: No Stability Stability form required: No Heart Score Heart Score: Heart Score Response (Comments) Value History N/A 0 EKG N/A 0 Age N/A 0 Risk Factors N/A 0 Troponin N/A 0 Total 0 I personally scribed for JOYCE SAGASTUME MD ([email or web address]) on 08/04/25 at 03:39. Electronically submitted by Kendra Chavez ([employer]). I personally scribed for JOYCE SAGASTUME MD ([email or web address]) on 08/04/25 at 03:48. El ectronically submitted by Kendra Chavez ([employer]). JOYCE SAGASTUME MD Aug 04, 2025 03:39
--- NOTE | 2025-08-04 03:46 | DVH ---
CHEST RADIOGRAPH Indication: Syncope Technique: Single frontal view of the chest was obtained COMPARISON: XY CHEST PORTABLE on DOS: 06/03/25, XY CHEST XRAY 1 VIEW on DOS: 06/02/25 FINDINGS: Lines and Tubes: None Lungs: Clear Pleura: No effusion. No pneumothorax. Cardiomediastinal contours: Unremarkable Bones: Unremarkable IMPRESSION: 1. No acute disease.
[2025-08-04 04:32] LABS: Hematocrit 35.3 % (36.0-46.0); Hemoglobin 12.2 g/dL (12.2-16.2); Mean Corpuscular Hemoglobin 32.6 pg (28.0-32.0); Mean Corpuscular Volume 94.3 fL (80.0-100.0); Nucleated Red Blood Cells % 0.2 %
[2025-08-04 04:35] LABS: Albumin 4.0 g/dL (3.2-4.8); Anion Gap 16 (5-15); Carbon Dioxide 24 mmol/L (20-31); Chloride 104 mmol/L (98-107); Glucose 92 mg/dL (74-106); Sodium 144 mmol/L (136-145); Total Protein 7.0 g/dL (5.7-8.2)
[2025-08-04 04:36] LABS: Bilirubin, Total 0.7 mg/dL (0.2-1.0)
[2025-08-04 04:44] LABS: Alanine Aminotransferase 278 U/L (7-40); Alkaline Phosphatase 171 U/L (46-116); BUN/Creatinine Ratio 8.6 (10.0-20.0); Blood Urea Nitrogen < 5 mg/dL (9-23); Calcium 8.4 mg/dL (8.7-10.4); Lactic Acid w/Reflex 3.3 mmol/L (0.4-2.0); Potassium 3.3 mmol/L (3.5-5.1)
[2025-08-04] MEDS: VANCOMYCIN 1GM/250ML KIT 250 ML IV ONE (05:12)
[2025-08-04] MEDS: POTASSIUM CHL 20 Meq TABLET PO ONE (05:13)
[2025-08-04 05:33] LABS: Urine Protein, UAD Negative (Negative)
--- NOTE | 2025-08-04 05:48 | ECG ---
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
[2025-08-04 05:57] LABS: Barbiturate Scree,Urine Neg (NEGATIVE); Opiate Scree,Urine Neg (NEGATIVE); Phencyclidine Screen, Urine Neg (NEGATIVE)
[2025-08-04 05:58] LABS: Amphetamine Screen, Urine Neg (NEGATIVE); Benzodiazephine Screen, Urine Pos (NEGATIVE); Cannabinoid Screen, Urine Neg (NEGATIVE); Cocaine Screen, Urine Neg (NEGATIVE)
[2025-08-04] MEDS: LORazepam 0.5 MG TAB PO ONE ×2 (05:58→09:32)
[2025-08-04] MEDS: PIPERACILLIN-TAZOB 3.375GM 100 ML IV ONE (06:00)
[2025-08-04 06:16] VITALS: PULSE 120; RESP 15; O2SAT 98
[2025-08-04] MEDS ORDERED: DOCUSATE SOD 100 MG CAP PO PRN (11:30)
[2025-08-04] MEDS ORDERED: ACETAMINOPHEN 325 MG TAB PO PRN (11:30)
[2025-08-04] MEDS ORDERED: MORPHINE SULFATE INJ 2 MG/ml SYRG IV PRN (11:30)
[2025-08-04] MEDS ORDERED: NITROGLYCERIN 0.4 MG SL TAB SL PRN (11:30)
[2025-08-04] MEDS ORDERED: ONDANSETRON HCL 4 MG/2 ML VIAL IV PRN (11:30)
[2025-08-04] MEDS: LORazepam 2MG/ML-1ML VIAL IV ONE (11:30)
[2025-08-04] MEDS: LORazepam 2MG/ML-1ML VIAL ONE (11:31)
--- NOTE | 2025-08-04 12:25 | DVH ---
CT HEAD WITHOUT CONTRAST Indication: syncopal episode EXAM DATE: 08/04/2025 11:52 AM COMPARISON: None TECHNIQUE: CT of the head without intravenous contrast. RADIATION DOSE: CTDIvol: 55.41 mGy, DLP: 1092 mGy*cm FINDINGS: There is no intracranial hemorrhage. There is no extra-axial fluid, mass, mass effect or midline shif t. The ventricles are midline and normal in size. Basilar cisterns are patent. Dey-white differentia tion is maintained. The paranasal sinuses and mastoids are well-pneumatized. Imaged portion of the orbits are unremarkabl e. IMPRESSION: No intracranial hemorrhage or mass effect. No intracranial hemorrhage or mass effect
--- NOTE | 2025-08-04 12:33 | DVHHP2 ---
History of Present Illness Reason for Visit: Syncopal episdoe History of Present Illness Rachel Velasco is a 40-year-old female with no significant past medical history, who came in for syncopal episode. Patient states early this morning about 0300 she was up using the bathroom when she had a syncopal episode. She states her boyfriend heard her have the syncopal episode and fall off the toilet. He went into the bathroom and found her on the floor and called EMS. Patient came in with a blood alcohol level of 243.4 She states she drinks about 4 days/week, her family does not know. She drinks about 3-4 cut mera at a time. ECHO was completed in May of 2025. Past Surgical History: Other (DNC) Smoke: No ALCOHOL: heavy Drugs: None Lives: with Family Domestic Violence: Neg Review of Systems Constitutional: Yes: Other (tremors); No: Fever, Chills, Sweats, Weakness, Malaise Eyes: No: Pain, Vision change, Conjunctivae inflammation, Eyelid inflammation, Other, Redness ENT: No: Ear pain, Ear discharge, Nose pain, Nose discharge, Nose congestion, Mouth pain, Mouth swelling, Throat pain, Throat swelling, Other Respiratory: No: Cough, Dry, Shortness of breath, SOB with excertion, Wheezing, Hemoptysis, Pleuritic Pain, Sputum, Wheezing, Other Cardiovascular: Palpitations; No: Chest Pain, Orthopnea, Paroxysmal Noc. Dyspnea, Edema, Lt Headedness, Other Gastrointestinal: No: Nausea, Vomiting, Abdominal Pain, Diarrhea, Constipation, Melena, Hematochezia, Other Genitourinary: No Dysuria, No Frequency, No Incontinence, No Hematuria, No Retention, No Other Musculoskeletal: No: other, neck pain, shoulder pain, arm pain, back pain, hand pain, leg pain, foot pain Skin: No: Rash, Lesions, Jaundice, Bruising, Other Neurological: Other (syncope); No: Weakness, Numbness, Incoordination, Change in speech, Confusion, Seizures Allergies: Coded Allergies: NO KNOWN ALLERGIES (Unverified , 06/02/25) Medications Current Medications Medications Dose Ordered Sig/Kate Route Start Time Stop Time Status Last Admin Dose Admin Acetaminophen/ Hydrocodone Bitart 1 tab Q4HP PRN PO 08/04/25 11:30 UNV Ondansetron HCl 4 mg Q4HP PRN IV 08/04/25 11:30 UNV Docusate Sodium 100 mg BIDPRN PRN PO 08/04/25 11:30 UNV Acetaminophen 650 mg Q6HP PRN PO 08/04/25 11:30 UNV Nitroglycerin 0.4 mg Q5MINP PRN SL 08/04/25 11:30 UNV Morphine Sulfate 2 mg Q30M PRN IV 08/04/25 11:30 UNV Thiamine HCl 100 mg DAILY PO 08/05/25 10:00 UNV Folic Acid 1 mg DAILY PO 08/05/25 10:00 UNV Multivitamins 1 tab DAILY PO 08/05/25 10:00 UNV Lorazepam 1 mg Q2HPRN PRN IV 08/04/25 11:30 UNV Chlordiazepoxide HCl 50 mg Q8H PO 08/04/25 11:30 08/05/25 03:31 UNV Chlordiazepoxide HCl 50 mg Q12HR PO 08/05/25 10:00 08/05/25 22:01 UNV Chlordiazepoxide HCl 25 mg Q12HR PO 08/06/25 10:00 08/06/25 22:01 UNV Chlordiazepoxide HCl 25 mg QAM PO 08/07/25 07:00 08/07/25 07:01 UNV Exam Vital Signs Vital Signs Date Time Temp Pulse Resp B/P (MAP) Pulse Ox O2 Delivery O2 Flow Rate FiO2 08/04/25 06:16 120 15 98 Nasal Cannula* 2 28 08/04/25 06:00 1290 (64) 08/04/25 03:33 99.0 99.0 General Appearance: Alert, Oriented X3, Cooperative, moderate distress HEENT: Atraumatic, PERRLA Respiratory: Clear to auscultation, Normal air movement Cardiovascular: Normal S1, Normal S2, Other (ST 140-170's) Abdominal: Normal bowel sounds, Soft Extremities: No clubbing, No cyanosis, No edema, Normal pulses Skin: No rashes, No breakdown, No significant lesion Neuro: Normal speech, Other (visual tremors and weakness) Psych/Mental Status: Mental status NL, Mood NL Labs/Xrays Labs Test 08/04/25 06:48 08/04/25 05:00 08/04/25 03:50 Range/Units Lactic Acid Level 3.0 *H 0.4-2.0 mmol/L Troponin I High Sensitivity < 3 L </=34 ng/L Urine Color Light-yellow Yellow Urine Clarity Turbid H Clear Urine pH 6.0 5.0-9.0 Urine Specific [place] 1.012 1.001-1.035 Urine Protein Negative Negative Urine Ketones Trace Negative Urine Blood Negative Negative /uL Urine Nitrite Negative Negative Urine Bilirubin Negative Negative Urine Urobilinogen Normal Negative mg/dL Urine Leukocyte Esterase 1+ Negative /uL Urine RBC None seen 0 - 4 /hpf Urine Microscopic WBC 3 0-5 /HPF Urine Squamous Epithelial Cells Mod <5 /hpf Urine Bacteria None seen None Seen /hpf Urine Mucus Few None Seen Urine Glucose Normal Normal mg/dL Urine Opiates Screen Neg NEGATIVE Urine Fentanyl Screen Neg NEGATIVE Urine Barbiturates Screen Neg NEGATIVE Urine Phencyclidine Screen Neg NEGATIVE Urine Amphetamines Screen Neg NEGATIVE Urine Benzodiazepines Screen Pos NEGATIVE Urine Cocaine Screen Neg NEGATIVE Urine Cannabinoids Screen Neg NEGATIVE White Blood Count 3.9 L 4.4-10.8 10^3/uL Red Blood Count 3.75 L 4.0-5.20 10^6/uL Hemoglobin 12.2 12.2-16.2 g/dL Hematocrit 35.3 L 36.0-46.0 % Mean Corpuscular Volume 94.3 80.0-100.0 fL Mean Corpuscular Hemoglobin 32.6 H 28.0-32.0 pg Mean Corpuscular Hemoglobin Concent 34.6 32.0-36.0 g/dL Red Cell Distribution Width 14.8 H 11.8-14.3 % Platelet Count 214 140-450 10^3/uL Mean Platelet Volume 7.4 6.9-10.8 fL Neutrophils (%) (Auto) 48.2 37.0-80.0 % Lymphocytes (%) (Auto) 38.2 10.0-50.0 % Monocytes (%) (Auto) 11.4 0.0-12.0 % Eosinophils (%) (Auto) 1.3 0.0-7.0 % Basophils (%) (Auto) 0.9 0.0-2.0 % Neutrophils # (Auto) 1.9 1.6-8.6 10 ^3/uL Lymphocytes # (Auto) 1.5 0.4-5.4 10 ^3/uL Monocytes # (Auto) 0.4 0-1.3 10 ^3/uL Eosinophils # (Auto) 0 0-0.8 10 ^3/uL Basophils # (Auto) 0 0-0.2 10 ^3/uL Nucleated Red Blood Cells 0.2 % Sodium Level 144 136-145 mmol/L Potassium Level 3.3 L 3.5-5.1 mmol/L Chloride Level 104 98-107 mmol/L Carbon Dioxide Level 24 20-31 mmol/L Anion Gap 16 H 5-15 Blood Urea Nitrogen < 5 L 9-23 mg/dL Creatinine 0.58 0.550-1.02 mg/dL Glomerular Filtration Rate Calc 118 >90 mL/min BUN/Creatinine Ratio 8.6 L 10.0-20.0 Serum Glucose 92 74-106 mg/dL Calcium Level 8.4 L 8.7-10.4 mg/dL Total Bilirubin 0.7 0.2-1.0 mg/dL Aspartate Amino Transferase (AST) 469 H 13-40 U/L Alanine Aminotransferase (ALT) 278 H 7-40 U/L Alkaline Phosphatase 171 H 46-116 U/L Total Protein 7.0 5.7-8.2 g/dL Albumin 4.0 3.2-4.8 g/dL Plasma/Serum Blood Alcohol 243.4 H <10 mg/dL CHEST RADIOGRAPH FINDINGS: Lines and Tubes: None Lungs: Clear Pleura: No effusion. No pneumothorax. Cardiomediastinal contours: Unremarkable Bones: Unremarkable IMPRESSION: 1. No acute disease. SEPSIS Sepsis Screen Date sepsis recognized/suspect: Aug 04, 2025 Time Sepsis recognized/suspect: 0430 Recent Procedure: No On Antibiotic Therapy: Yes Respiratory Rate >20: No Heart Rate >90: Yes Temp<36 C (96.8 F) or >38.3 C: No SBP <90 or MAP <65 mmHG: No New Acute Mental Status Change: No Is the patient on CPAP, BIPAP,: No Physician Orders Sodium Chloride 0.9% (08/04/25 05:00) Sodium Chloride 0.9% (08/04/25 11:30) Lorazepam 2mg/Ml Inj (Ativan Inj) (08/04/25 11:30) Admit (08/04/25 11:29) Code Status (08/04/25 11:29) Hydrocodone-Acet 5/325mg Tab ([place] 5/32 (08/04/25 11:30) Ondansetron Hcl (Zofran) (08/04/25 11:30) Docusate Sodium Capsule (Colace Capsule) (08/04/25 11:30) Fall Risk Precautions In Place QSHIFT (08/04/25 11:29) Complete Blood Count (08/05/25 04:00) Comprehensive Metabolic Panel (08/05/25 04:00) Carotid Duplx W Color Dop (08/04/25 11:29) Condition: Serious (08/04/25 11:29) Acetaminophen Tablet (Tylenol Tablet) (08/04/25 11:30) Nitroglycerin Sublingual (Ntrostat Subli (08/04/25 11:) Morphine Sulfate Injection (08/04/25 11:) Stat Ekg For Chest Pain (08/04/25 11:) Notify Md Of Changes From Base (08/04/25 11:) 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 Worker 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 (08/04/25 11:29) Emergency Dysrhythmia Protocol (08/04/25 11:29) Rhythm Strips Once Every Shift (08/04/25 11:29) Oxygen By Nasal Cannula (08/04/25 11:) Echo 2d Mode Cardiac Dop (08/04/25 11:) Thiamine Tab (08/05/25 10:00) Folic Acid Tablet (08/05/25 10:00) Multiple Vitamin Tablet (Mvi Tab) (08/05/25 10:00) Thiamine Tab (08/04/25 11:30) Multiple Vitamin Tablet (Mvi Tab) (08/04/25 11:30) Folic Acid Tablet (08/04/25 11:30) Lorazepam 2mg/Ml Inj (Ativan Inj) (08/04/25 11:30) Etoh Withdrawal Assessment (08/04/25 11:29) Chlordiazepoxide Hcl Capsule (Librium Ca (08/04/25 11:30) Chlordiazepoxide Hcl Capsule (Librium Ca (08/05/25 10:00) Chlordiazepoxide Hcl Capsule (Librium Ca (08/06/25 10:00) Chlordiazepoxide Hcl Capsule (Librium Ca (08/07/25 07:00) Vital Signs Date Time Temp Pulse Resp B/P (MAP) Pulse Ox O2 Delivery O2 Flow Rate FiO2 08/04/25 06:16 120 15 98 Nasal Cannula* 2 28 08/04/25 06:00 117 13 12 (64) 98 08/04/25 04:10 119 Laboratory Tests Test 08/04/25 03:50 08/04/25 06:48 Lactic Acid Level 3.3 mmol/L (0.4-2.0) *H 3.0 mmol/L (0.4-2.0) *H White Blood Count 3.9 10^3/uL (4.4-10.8) L Medications Medications Dose Ordered Sig/Kaet Route Start Time Stop Time Status Last Admin Dose Admin Folic Acid 1 mg ONCE ONCE PO 08/04/25 03:15 08/04/25 03:16 DC 08/04/25 03:26 1 MG Lorazepam 1 mg ONCE ONCE PO 08/04/25 06:00 08/04/25 06:01 DC 08/04/25 05:58 1 MG Lorazepam 1 mg ONCE ONCE PO 08/04/25 09:15 08/04/25 09:16 DC 08/04/25 09:32 1 MG Multivitamins 1 tab ONCE ONCE PO 08/04/25 03:15 08/04/25 03:16 DC 08/04/25 03:26 1 TAB Piperacillin Sod/ Tazobactam Sod 100 ml @ 100 mls/hr ONCE ONCE IV 08/04/25 05:00 08/04/25 05:59 DC 08/04/25 06:00 100 MLS/HR Potassium Chloride 40 meq ONCE ONCE PO 08/04/25 05:00 08/04/25 05:01 DC 08/04/25 05:13 40 MEQ Sodium Chloride 1,000 ml @ 130 mls/hr Q7H42M ONCE IV 08/04/25 05:00 08/04/25 12:41 08/04/25 05:07 130 MLS/HR Sodium Chloride 1,000 ml @ 1,000 mls/hr Q1H ONCE IV 08/04/25 03:15 08/04/25 04:14 DC 08/04/25 03:22 1,000 MLS/HR Sodium Chloride 1,000 ml @ 1,000 mls/hr Q1H ONCE IV 08/04/25 05:00 08/04/25 05:59 DC 08/04/25 05:03 1,000 MLS/HR Thiamine HCl 100 mg ONCE ONCE PO 08/04/25 03:15 08/04/25 03:16 DC 08/04/25 03:26 100 MG Vancomycin HCl 250 ml @ 250 mls/hr ONCE ONCE IV 08/04/25 05:00 08/04/25 05:59 DC 08/04/25 05:12 250 MLS/HR Assessment/Plan Assessment/Plan Assessment: Alcoholic hepatitis, Elevated lactic acid level, Syncopal episode, Transaminitis, Dehydration, ETOH withdrawal, Plan: Admit to Tele, Carotid duplex, Consider Neurology consult, Consider Cardiology consult, IV hydration, Liver ultrasound, Tapering Librium does, PRN Ativan, PO supplements for ETOH withdrawal, Plan discussed with: Patient My Orders Orders - CLARK LONGO [employer] UNDERWRITER Procedure Category Date Status Time Sodium Chloride 0.9% PHA 08/04/25 Logged 11:30 Lorazepam 2mg/Ml Inj PHA 08/04/25 Logged (Ativan Inj) 11:30 Admit ADMIT 08/04/25 Transmitted 11:29 Code Status CODE 08/04/25 Transmitted 11:29 Hydrocodone-Acet PHA 08/04/25 Logged 5/325mg Tab ([place] 11:30 Ondansetron Hcl PHA 08/04/25 Logged (Zofran) 11:30 Docusate Sodium PHA 08/04/25 Logged Capsule (Colace 11:30 Fall Risk Precautions [facility] 08/04/[address] 11:29 Complete Blood Count LAB 08/05/25 Verified 04:00 Comprehensive LAB 08/05/25 Verified Metabolic Panel 04:00 Carotid Duplx W Color US 08/04/25 Logged DOP 11:29 Condition: Serious [facility] 08/04/25 In Process 11:29 Acetaminophen Tablet PHA 08/04/25 Logged (Tylenol Tablet) 11:30 Nitroglycerin PHA 08/04/25 Logged Sublingual (Ntrostat 11:30 Morphine Sulfate PHA 08/04/25 Logged Injection 11:30 Stat Ekg For Chest [facility] 08/04/25 In Process Pain 11:29 Notify Of Changes [facility] 08/04/25 In Process From Base 11:29 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 Worker For [facility] 08/04/25 In Process 24 Hours 11:29 Emergency Dysrhythmia [facility] 08/04/25 In Process Protocol 11:29 Rhythm Strips Once [facility] 08/04/25 In Process Every Shift 11:29 Oxygen By Nasal RT 08/04/25 Transmitted Cannula 11:29 Echo 2d Mode Cardiac US 08/04/25 Logged DOP 11:29 Thiamine Tab PHA 08/05/25 Logged 10:00 Folic Acid Tablet PHA 08/05/25 Logged 10:00 Multiple Vitamin PHA 08/05/25 Logged Tablet (Mvi Tab) 10:00 Thiamine Tab PHA 08/04/25 Logged 11:30 Multiple Vitamin PHA 08/04/25 Logged Tablet (Mvi Tab) 11:30 Folic Acid Tablet PHA 08/04/25 Logged 11:30 Lorazepam 2mg/Ml Inj PHA 08/04/25 Logged (Ativan Inj) 11:30 Etoh Withdrawal [facility] 08/04/25 In Process Assessment 11:29 Chlordiazepoxide Hcl PHA 08/04/25 Logged Capsule (Librium Ca 11:30 Chlordiazepoxide Hcl PHA 08/05/25 Logged Capsule (Librium Ca 10:00 Chlordiazepoxide Hcl PHA 08/06/25 Logged Capsule (Librium Ca 10:00 Chlordiazepoxide Hcl PHA 08/07/25 Logged Capsule (Librium Ca 07:00 Date of Service: Aug 04, 2025 Billing Provider: CLARK LONGO Common Visit Codes: [id number] INP/OBS CARE (MOD) CLARK LONGO Aug 04, 2025 12:33
--- NOTE | 2025-08-04 13:14 | DVH ---
Indication: Syncope Technique: Real-time ultrasound images of the neck vessels with christianson-scale, color and wave Doppler we re obtained. Comparison: None Findings: The following peak systolic velocities were recorded in cm/sec: Right internal carotid: 78 Right common carotid: 66 Right external carotid: 68 Right internal/common carotid ratio: 1.2 Left internal carotid: 72 Left common carotid: 61 Left external carotid: 50 Left internal/common carotid ratio: 1.2 Right vertebral artery: Patent with normal antegrade direction of flow. Left vertebral artery: Patent with normal antegrade direction of flow. Impression: No hemodynamically significant stenosis by velocity criteria.
[2025-08-04] MEDS: LORazepam 2MG/ML-1ML VIAL IV PRN (14:56)
--- NOTE | 2025-08-04 18:38 | DVH ---
Technique: Real-time ultrasound imaging of the abdomen was performed with grayscale and color Doppler . Indication: Elevated liver enzymes, ETOH Comparison: US GALLBLADDER on DOS: 06/02/25 Findings: Liver measures 18.1 cm. It is increased in echogenicity and echotexture without focal mass. Portal v ein is normal in caliber and demonstrates normal hepatopetal flow. Gallbladder demonstrates no evidence for cholelithiasis. There is no pericholecystic fluid. The wall thickness is normal. The common bile duct measures 6 mm. No intrahepatic biliary ductal dilatation. The right kidney measures 10 cm. There is no hydronephrosis or sonographic evidence of nephrolithiasi s. The visualized portion of the pancreas is unremarkable. Impression: Echogenic liver which can be seen with hepatic steatosis, cirrhosis. Hepatomegaly. No sonographic evidence For cholelithiasis.
[2025-08-04] MEDS: HYDROcodone-ACET 5/325MG TAB PO PRN (19:21)
[2025-08-05 07:52] LABS: Hematocrit 34.9 % (36.0-46.0); Hemoglobin 12.3 g/dL (12.2-16.2); Mean Corpuscular Hemoglobin 33.1 pg (28.0-32.0); Mean Corpuscular Volume 93.7 fL (80.0-100.0); Nucleated Red Blood Cells % 0.1 %
[2025-08-05 08:00] VITALS: BP 134/96; PULSE 105; RESP 13; TEMP 97.9; O2SAT 95
[2025-08-05 08:08] LABS: Albumin 4.1 g/dL (3.2-4.8); Anion Gap 12 (5-15); Calcium 9.0 mg/dL (8.7-10.4); Carbon Dioxide 26 mmol/L (20-31); Chloride 100 mmol/L (98-107); Glucose 85 mg/dL (74-106); Sodium 138 mmol/L (136-145); Total Protein 7.3 g/dL (5.7-8.2)
[2025-08-05 08:10] LABS: Alanine Aminotransferase 196 U/L (7-40); Alkaline Phosphatase 162 U/L (46-116); BUN/Creatinine Ratio 8.3 (10.0-20.0); Bilirubin, Total 2.0 mg/dL (0.2-1.0); Blood Urea Nitrogen < 5 mg/dL (9-23); Potassium 3.4 mmol/L (3.5-5.1)
[2025-08-05] MEDS: FOLIC ACID 1 MG TAB PO SCH (10:28)
[2025-08-05] MEDS: MULTIPLE VITAMIN TAB PO SCH (10:28)
[2025-08-05] MEDS: THIAMINE HCL 100 MG TAB PO SCH (10:28)
[2025-08-05] MEDS: THIAMINE HCL 100 MG TAB ONE (10:29)
--- NOTE | 2025-08-05 11:29 | DVHDS2 ---
Discharge Summary Date of Admission Aug 04, 2025 at 11:29 Date of Discharge: Aug 05, 2025 Admitting Diagnosis Alcoholic hepatitis, Elevated lactic acid level, Syncopal episode, Transaminitis, Dehydration, ETOH withdrawal, Labs/Diagnostic Data: Laboratory Results Test 08/05/25 07:17 08/04/25 06:48 08/04/25 05:00 White Blood Count 4.0 10^3/uL (4.4-10.8) Red Blood Count 3.72 10^6/uL (4.0-5.20) Hemoglobin 12.3 g/dL (12.2-16.2) Hematocrit 34.9 % (36.0-46.0) Mean Corpuscular Volume 93.7 fL (80.0-100.0) Mean Corpuscular Hemoglobin 33.1 pg (28.0-32.0) Mean Corpuscular Hemoglobin Concent 35.4 g/dL (32.0-36.0) Red Cell Distribution Width 14.5 % (11.8-14.3) Platelet Count 168 10^3/uL (140-450) Mean Platelet Volume 7.9 fL (6.9-10.8) Neutrophils (%) (Auto) 45.8 % (37.0-80.0) Lymphocytes (%) (Auto) 39.1 % (10.0-50.0) Monocytes (%) (Auto) 11.3 % (0.0-12.0) Eosinophils (%) (Auto) 3.1 % (0.0-7.0) Basophils (%) (Auto) 0.7 % (0.0-2.0) Neutrophils # (Auto) 1.8 10 ^3/uL (1.6-8.6) Lymphocytes # (Auto) 1.6 10 ^3/uL (0.4-5.4) Monocytes # (Auto) 0.4 10 ^3/uL (0-1.3) Eosinophils # (Auto) 0.1 10 ^3/uL (0-0.8) Basophils # (Auto) 0 10 ^3/uL (0-0.2) Nucleated Red Blood Cells 0.1 % Sodium Level 138 mmol/L (136-145) Potassium Level 3.4 mmol/L (3.5-5.1) Chloride Level 100 mmol/L (98-107) Carbon Dioxide Level 26 mmol/L (20-31) Anion Gap 12 (5-15) Blood Urea Nitrogen < 5 mg/dL (9-23) Creatinine 0.60 mg/dL (0.550-1.02) Glomerular Filtration Rate Calc 117 mL/min (>90) BUN/Creatinine Ratio 8.3 (10.0-20.0) Serum Glucose 85 mg/dL (74-106) Calcium Level 9.0 mg/dL (8.7-10.4) Total Bilirubin 2.0 mg/dL (0.2-1.0) Aspartate Amino Transferase (AST) 223 U/L (13-40) Alanine Aminotransferase (ALT) 196 U/L (7-40) Alkaline Phosphatase 162 U/L (46-116) Total Protein 7.3 g/dL (5.7-8.2) Albumin 4.1 g/dL (3.2-4.8) Plasma/Serum Blood Alcohol < 3.0 mg/dL (<10) Lactic Acid Level 3.0 mmol/L (0.4-2.0) Troponin I High Sensitivity < 3 ng/L (</=34) Urine Color Light-yellow (Yellow) Urine Clarity Turbid (Clear) Urine pH 6.0 (5.0-9.0) Urine Specific [place] 1.012 (1.001-1.035) Urine Protein Negative (Negative) Urine Ketones Trace (Negative) Urine Blood Negative /uL (Negative) Urine Nitrite Negative (Negative) Urine Bilirubin Negative (Negative) Urine Urobilinogen Normal mg/dL (Negative) Urine Leukocyte Esterase 1+ /uL (Negative) Urine RBC None seen /hpf (0 - 4) Urine Microscopic WBC 3 /HPF (0-5) Urine Squamous Epithelial Cells Mod /hpf (<5) Urine Bacteria None seen /hpf (None Seen) Urine Mucus Few (None Seen) Urine Glucose Normal mg/dL (Normal) Urine Opiates Screen Neg (NEGATIVE) Urine Fentanyl Screen Neg (NEGATIVE) Urine Barbiturates Screen Neg (NEGATIVE) Urine Phencyclidine Screen Neg (NEGATIVE) Urine Amphetamines Screen Neg (NEGATIVE) Urine Benzodiazepines Screen Pos (NEGATIVE) Urine Cocaine Screen Neg (NEGATIVE) Urine Cannabinoids Screen Neg (NEGATIVE) Other Laboratory Tests 08/05/25 07:17 Brief Hx & Hospital Course: This is a 40 years old female with no known past medical history come in because of syncopal episode. The patient apparently went to the bathroom and pass out. Her boyfriend found her failing in the toilet so he called 911 and brought her into the hospital. The patient had blood alcohol level of 243.4. Patient said she drinks about four day per week. The patient was admitted for alcohol withdrawal. The patient was put on IV fluid, Librium, Ativan. The patient however grew anxious and left against medical advice. The patient alcohol was rechecked in his less than 3 at this time. Patient verbally understand that she might go through withdrawal she not having appropriate detox but she still leave against medical advice. Physical exam: HEENT: Normocephalic atraumatic pupils equal react to light and accommodation. Extraocular muscles intact, conjunctiva pink, oropharynx moist, no thrush, no exudate. Lymphatic: No lymphadenopathy Cardiovascular exam: S1, S2 was heard. No murmurs, rubs, gallops Lung: Clear on auscultation bilaterally, no wheeze, rale, rhonchi. GI: Abdominal soft, nondistended, nontenderness, positive bowel sounds. Extremity: No crepitus, cyanosis, edema. Pedal pulses present bilateral. Full range of motion. Skin: Normal turgor, no rash. Psych: Alert, oriented x3. Neurology: No focal deficits, cranial nerve II to XII grossly intact. This medical document was created using an electronic medical record system with [employer] direct computerized dictation system. Although this document has been carefully reviewed, there may still be some phonetic and typographical errors. These areas are purely typographical due to imperfections of the software programs, and do not reflect any compromise in the patient's medical care. Condition at Discharge: Guarded Final Diagnosis/Problems List Alcoholic hepatitis, Elevated lactic acid level, Syncopal episode, Transaminitis, Dehydration, ETOH withdrawal, Discharge Disposition: AMA Discharge Instruct/Medications No Active Prescriptions or Reported Meds Discharge Statement: "Patient was advised to return to the ER or call 911 if any headaches, dizziness, shortness of breath, chest pain, abdominal pain, bleeding, fevers, or worsening of medical condition. Patient was counseled about treatment plan, medications, possible side effects, patientverbalized understanding. All questions were answered to the best of my ability. This discharge took greater then 30 minutes in planning, reviewing documentation, counseling the patient, and discussing with other team members." ASSESSMENT ASSESSMENT Assessment Date of Service: Aug 05, 2025 Billing Provider: CARLOS EDUARDO SÁNCHEZ MD Common Visit Codes: [id number] DISCH DAY >30min CARLOS EDUARDO SÁNCHEZ MD Aug 05, 2025 11:29
== END 2025-08-05 11:49 | disposition left against medical advice (07) | DRG 280 ==
LOC: EDBD 02:51 → ER 02:51 → OVERFLOW 11:29
PROVIDERS: ADMIT Internal Medicine; ATTEND Internal Medicine
DX: K70.10 Alcoholic hepatitis without ascites (principal); E87.20 Acidosis, unspecified; E86.0 Dehydration; R55 Syncope and collapse; F10.239 Alcohol dependence with withdrawal, unspecified; F41.9 Anxiety disorder, unspecified; R74.01 Elevation of levels of liver transaminase levels; Z53.29 Procedure and treatment not carried out because of patient's decision for other reasons; Y90.8 Blood alcohol level of 240 mg/100 ml or more
CPT/HCPCS: 36415; 70450; 71045; 76705; 80053; 80307; 80320; 81001; 83605; 84484; 85025; 87040; 93005; 93886; 96365; 96375; G0378; J2543